=== PATIENT | male | born 1945 | race Caucasian/White ===

== ENCOUNTER 2022-09-26 14:58 | Inpatient (IN) | payer BC, SELFPAY ==
[2022-09-26 16:21] VITALS: BP 125/75; PULSE 60; RESP 18; TEMP 37; O2SAT 99; BMI 25.0
[2022-09-26 17:33] LABS: Bacteria Urine Few; RBC Urine >100 (0-2); Squamous Epithelial Cell Urine Few (None-Few); WBC Urine 50-100 (0-5)
--- NOTE | 2022-09-26 19:03 | ED.GENADULT ---
HPI - General Adult General Chief complaint: Urogenital Problems, Male Stated complaint: Low NA, potential UTI Time Seen by Provider: 09/26/22 18:54 History of Present Illness HPI narrative: This 77-year-old male comes in because his oncology team called him stating that his sodium was low. He does report some generalized weakness. He is taking Keytruda for bladder cancer. He does have some chronic hematuria related to this. He does not report any other new symptoms. Related Data Home Medications Medication Instructions Recorded Confirmed atenolol 25 mg tablet mg 09/26/22 atorvastatin 40 mg tablet mg 09/26/22 famotidine 20 mg tablet mg 09/26/22 levothyroxine 25 mcg tablet mcg 09/26/22 levothyroxine 50 mcg tablet mcg 09/26/22 Allergies Allergy/AdvReac Type Severity Reaction Status Date / Time No Known Drug Allergies Allergy Verified 09/26/22 16:18 Review of Systems Status of ROS: Reports: 10 or more systems reviewed and unremarkable except as noted in History and below Narrative: Constitutional: No fevers, no weight gain or loss. Eyes: No discharge. No vision changes. HENT: No congestion, no sore throat, no ear pain. Cardiovascular: No chest pain, no palpitations. Respiratory: No shortness of breath, no wheezes, no cough. Gastrointestinal: No abdominal pain, no vomiting, no diarrhea. Genitourinary: History of bladder cancer with recurrent hematuria. Musculoskeletal: Normal range of motion. Skin: No rashes, no pruritis. Neurological: No dizziness, weakness, sensory change, speech change. Endo/Heme/Allergies: No bruising or bleeding. No polydipsia. Pysch: no suicidality, no anxiety, no insomnia. All other systems reviewed and are negative. [facility] Medical History (Updated 09/26/22 @ 20:57 by Sai Pedraza MD) Bladder cancer Hypothyroid Social History Smoking Status: Never smoker How often do you have a drink containing alcohol: never AUDIT-C Alcohol total score: 0 Non-prescribed substance use: denies use Exam Narrative: Exam Narrative: Constitutional: Well-developed, well-nourished, no acute distress. HEENT: Normocephalic, atraumatic. Neck: Normal range of motion. Nontender. Supple. Heart: Regular. No murmurs. Normal rate. Intact distal pulses. Lungs: Clear to auscultation. No chest discomfort. No wheezes, rhonchi, or rales. Abdomen: Normal bowel sounds. Nontender. No rebound tenderness. Genitalia: Deferred. Back: No midline tenderness. Normal range of motion. Extremities: Normal range of motion. No injury. Skin: Intact. No rash. Warm. No erythema or pallor. Neurologic: No altered sensation. No weakness. Alert and oriented. Psychiatric: No suicidality. No anxiety or depression. No insomnia. Nursing notes and vitals signs are reviewed. Const: Vital Signs, click to edit/add: Vital Signs - 24 hr 09/26/22 16:21 09/26/22 20:00 Temperature 98.6 F Pulse Rate [Pulse Oximeter] 60 57 L Respiratory Rate 18 18 Blood Pressure [[facility]] 125/75 105/63 Pulse Oximetry 99 98 Oxygen Delivery Me thod Room Air Room Air Course Vital Signs Vital signs: Initial Vital Signs Temperature 98.6 F 09/26/22 16:21 Temperature Source Temporal Artery Scan 09/26/22 16:21 Pulse Rate 60 09/26/22 16:21 Respiratory Rate 18 09/26/22 16:21 Blood Pressure 125/75 09/26/22 16:21 Blood Pressure Mean 91 09/26/22 16:21 Pulse Oximetry 99 09/26/22 16:21 Oxygen Delivery Method 09/26/22 16:21 Vital Signs Temperature 98.6 F 09/26/22 16:21 Pulse Rate 60 09/26/22 16:21 Respiratory Rate 18 09/26/22 16:21 Blood Pressure 125/75 09/26/22 16:21 Pulse Oximetry 99 09/26/22 16:21 Oxygen Delivery Method 09/26/22 16:21 Temperature 98.6 F 09/26/22 16:21 Pulse Rate 57 L 09/26/22 20:00 Respiratory Rate 18 09/26/22 20:00 Blood Pressure 105/63 09/26/22 20:00 Pulse Oximetry 98 09/26/22 20:00 Oxygen Delivery Method 09/26/22 20:00 Medical Decision Making MDM Narrative Medical decision making narrative: Lab results returned with significant hyponatremia with sodium at 116. His hemoglobin is at 9.0 which is stable for him. Urinalysis does show evidence of urinary tract infection. An IV is established and he started receiving 3% hypertonic saline intravenously. He also received an IV dose of Rocephin 1000 mg. I spoke with the hospitalist on-call, Dr. Jaquez, and with the [facility] hospitalist, Dr. Darling, who will arrange for his admission. Lab Data Labs: Lab Results 09/26/22 09/26/22 09/26/22 Range/Units 16:29 19:34 19:34 WBC 7.33 (4.50-11.00) K/uL RBC 2.82 L (4.30-5.90) m/uL Hgb 9.0 L (13.5-17.5) gm/dL Hct 24.4 L (37.0-53.0) % MCV 87 (80-100) fL MCH 32 (26-34) pg MCHC 37 H (32-36) gm/dL RDW Coeff of Belinda 12.3 (11.5-15.5) % Plt Count 236 (140-440) K/uL Neut % (Auto) 67.4 (42.0-72.0) % Lymph % (Auto) 9.4 L (20-44) % [place] % (Auto) 9.7 (0.0-11.0) % Eos % (Auto) 12.4 H (0.0-7.0) % Baso % (Auto) 0.3 (0.0-3.0) % Neut # (Auto) 4.94 (1.7-7.0) K/uL Lymph # (Auto) 0.70 L (0.90-2.90) K/uL [place] # (Auto) 0.70 (0.00-0.90) K/UL Eos # (Auto) 0.90 H (0.00-0.50) K/uL Baso # (Auto) 0.02 (0.00-0.30) K/uL Abs Immat Gran (auto) 0.06 (0.00-0.30) K/uL Imm/Tot Granulo (auto) 0.8 % Sodium 116 L* (135-149) mmol/L Potassium 5.1 (3.6-5.1) mmol/L Chloride 88 L (96-114) mmol/L Carbon Dioxide 21 (20-32) mmol/L BUN 25 (7-30) mg/dL Creatinine 1.4 (0.5-1.5) mg/dL Estimated Creat Clear 44.90 Estimated GFR 51 ml/min Glucose 100 (60-115) mg/dL Calcium 8.9 (8.4-10.6) mg/dL Urine RBC >100 A (0-2) Urine WBC 50-100 A (0-5) Ur Squamous Epith Cells Few (None-Few) Urine Bacteria Few A (None) Discharge Plan Discharge Clinical Impression: Urinary tract infection, Acute hyponatremia Patient Disposition: Admitted As Inpatient Prescriptions: No Action atorvastatin 40 mg tablet atenolol 25 mg tablet levothyroxine 25 mcg tablet famotidine 20 mg tablet levothyroxine 50 mcg tablet Follow Up/Referrals: Karson Patton MD [Primary Care Provider] -
--- OUTSIDE RECORDS SUMMARY | 2022-09-26 19:48 | XMS_ITS | Encounter Summary ---
:1945 Author Care Team Providers Name Role Phone Karson Patton MD Primary Care Provider [phone] Reason for Visit Nurse visit UA/UC Assessment and Plan 1. Blood in urine Patient having blood in urine. He CIC x 2 a day. UA shows NITRATE positive. UC sent. Cipro BID for 3 days. ? urinalysis, dipstick ? culture, urine Discussion Note: None recorded.Patient educational handouts: No information available. Plan of Care Patient Instructions Follow up on UC Reminders Provider Appointments None recorded. ? ? Lab Urinalysis, Dipstick 08/17/2022 [facility] ? Culture, Urine 08/17/2022 [facility] Referral None recorded. ? ? Procedures None recorded. ? ? Surgeries None recorded. ? ? Imaging None recorded. ? ? Medications Name Start Date ? ? atenolol 25 mg tablet ? atorvastatin 40 mg tablet ? ciprofloxacin 250 mg tablet 08/19/2022 ciprofloxacin 500 mg tablet ? Take 1 tablet every 12 hours by oral route for 7 days . famotidine 20 mg tablet ? Fish Oil ? iron ? levothyroxine 75 mcg tablet ? nitroglycerin 0.4 mg sublingual tablet ? prochlorperazine maleate 10 mg tablet ? Synthroid ? Vitamin D ? Medications Administered None recorded. Vitals None recorded. Results Lab Results Date Name Specimen Result Interpretation Description Value Range Status Address ? 08/17/2022 Culture, UR ABNORMAL Final microbiology ? Fin al [place] [facility]: [address] [facility] [address], [place] 08/17/2022 Urinalysis, ? Nitrate positive ? ? [facility]: Dipstick s-Status [address], [place] ? ? ? Blood-S Large ? ? [facility] : tatus [address], [place] ? ? ? Leuko-S Large ? ? [facility] : [place] [address], [place] Allergies Code Code System Name Reaction Severity Onset NKDA ? ? ? Problems Name Status Onset Date Source ? Urethral Stricture Active 04/29/2022 ? Recurrent Urinary Tract Infection Active 04/29/2022 ? Retention of Urine Active 04/29/2022 ? Procedures Date Name Performed by ? 10/23/2019 Colonoscopy Information not avai lable Vaccine List Vaccine Type COVID-19, mRNA, LNP-S, PF, 30 mcg/0.3 mL dose ([facility] [employer]) 12/08/2020 12/29/2020 07/21/2021 pneumococcal conjugate PCV 13 10/10/2014 pneumococcal polysaccharide PPV23 10/06/2010 Social History Tobacco Smoking Status Never Smoker What was the date of your most recent tobacco screening? What is your level of alcohol consumption? Occasional What is your level of caffeine consumption? Occasional Family History Relation Problem Onset Age of Age Notes Father Family history of cardiac (No Information) N/A (No Notes) disorder Functional Status Unknown. Past Encounters Encounter Date Diagnosis Provider 08/17/2022 Blood in Urine Oneal jeff MD: [address] [place], [place] [phone], Ph. History of Present Illness None recorded. Review of Systems None recorded. Physical Exam None recorded.
--- OUTSIDE RECORDS SUMMARY | 2022-09-26 19:48 | XMS_ITS | Encounter Summary ---
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 Here for recent UTIs and weak urinary stream. 1) Metastatic MIBC - continue pembro per Dr. Chapman 2) Right hydro - resolved - remove right nephrostomy today - cipro 500 mg PO once daily x 3 days 3) UTIs - if dysuria, fever, chills, etc in futu re, would obtain new UCx and treat based on culture results 4) Urethral stricture - 14Fr stricture noted on cystoscopy 04/29 , dilated with scope - can do CIC every other day for now for a few weeks, may be able to stretch this out to once weekly 5) Incomplete bladder emptying - improved with PVR 100-150 ml - likely related to stricture 35 min total time 1. Malignant tumor of urinary bladder 2. Recurrent urinary tract infection 3. Hydronephrosis 4. Urethral stricture 5. Retention of urine Discussion Note: None recorded.Patient educational handouts: No information available. Plan of Care Reminders Provider Appointments None recorded. ? ? Lab None recorded. ? ? Referral None recorded. ? ? Procedures None [...] D ? Medications Administered None recorded. Vitals Height Weight BMI 5 ft 10 in 173 lbs 24.8 kg/m2 Results Lab Results None recorded. Allergies Code Code System Name Reaction Severity Onset NKDA ? ? ? Problems Name Status Onset Date Source ? Urethral Stricture Active 04/29/2022 ? Recurrent Urinary Tract Infection Active 04/29/2022 ? Retention of Urine Active 04/29/2022 ? Procedures Date Name Performed by ? 10/23/2019 Colonoscopy Information not avai lab Vaccine List Vaccine Type COVID-19, mRNA, LNP-S, PF, 30 mcg/0.3 mL dose ([employer]) 12/08/2020 12/29/2020 07/21/2021 pneumococcal conjugate PCV 13 [...] Unknown. Past Encounters Encounter Date Diagnosis Provider 07/06/2022 Malignant Tumor of Urinary Bladder; [facility] Everardo Harvey MD: Recurrent Urinary Tract Infection; [address] [facility], Hydronephrosis; Urethral Stricture; [place] [phone], Ph. Retention of Urine History of Present Illness Note: <div>77M with metastatic bladder cancer, metastasis to liver and lymph nodes.</div><div>
</div><div>Started with GC. Noted to have progression in liver. Now on pembrolizumab with Dr. Brown.</div><div>Lat PET CT shows mixed response (decrease in pelvic LN, increase size liver met)</div><div>
</div><div>Right hydronephrosis from pelvic LAD; right PNT placed 11/2021. Most recent exchange 06/24/22 with good antegrade flow to bladder.</div><div>
</div><div>H/o urethral stricture; has been doing CIC once daily with 14F catheter. Typically ~ 150 cc residual. 2x up to ~ 400cc. </div><div> </div><div>
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
</div><div>
</div><div>
</div><div>&lt ;strong>UCx Results </strong></div><div>03/03 no growth</div><div>03/18 >100k Pseudomonas (pansens)</div><div>04/08 >100K Pseudomonas (pansens) and >100K Enterococcus (resistant to gent and levo)</div><div>
</div><div><strong>PSA Results</strong></div><div>0.75 (09/26/06) </div><div>0.99 (09/28/11) </div><div>1.34 (10/01/13) </div><div>0.60 (04/03/17) </div><div>0.68 (03/28/18) </div><div>0.70 (02/27/19) </div><div>0.85 (05/04/20) </div><div>1.05 (07/08/21) </div><div>
</div><div><strong>Labs:</strong></div><div>10/26/21 Cr 0.93, Hgb 14.1</div><div>06/07/22: Cr 1.52</div><div>
</div><div><strong>Imagin g:</strong></div><div> 09/29/21 CT Urogram: 5.4 cm mass in bladder along Right lateral wall; no significant hydro</div><div>11/09/21 PET-CT: abnormal thickening of the rightlateral and post lateral bladder wall with uptake consistent with known primary bladder malignancy. Abnormal uptake within right common iliac and right pelvic sidewall lymph nodes is highly suspicious for metastatic otilia disease.</div><div>06/03/22: PET-CT: increase size right hepatic metastasis with decreased activity, decrease in size and actvity of right pelvic LN</div><div>
</div><div> </div><div>
</div><div>PMH: CAD, BPH, sensorineural hearing loss, HLD, esophageal stricture</div><div>PSH: b/l IHR, left and right TRAMAINE, TURP</div><div>
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</div><div>Tobacco: never smoker</div><div>EtOH: occasional</div><div>
</div><div>FHx:</div><div>brother - throat ca</div><div>

</div> Review of Systems ? Comprehensive General Adult ROS Reported By: Patient Constitutional: Constitutional: no fever, no chills Eyes: Eyes: no dry eyes, no vision change, no irritation Endocrine: Endocrine: no fatigue, no in creased thirst Cardiovascular: Cardiovascular: no chest rafia n, no palpitations Integumentary: Skin: no rashes, no change i n skin color Respiratory: Respiratory: no wheezing, no cough, no shortness of breath Gastrointestinal: Gastrointestinal: no abdomin al pain, no nausea, no vomiting, no constipation, no GERD Musculoskeletal: Musculoskeletal: no neck rafia n, no back pain Neurologic: Neurologic: no tremor, no di zziness, no numbness, no headaches Genitourinary: Genitourinary: no incontinen ce, no difficulty urinating ENMT: Ears: no ear pain. Mouth/Thr oat: no sore throat Allergic/Immunologic: Allergy/Immunologic: no itch ing, no hives Hematologic/Lymphatic: Hematologic/Lymphatic no swo llen glands, no excessive bleeding Psychiatric: Psych: no hallucinations, (n ormal) sleep disturbances: mismatch of sleep / wake ita edule with lifestyle needs Physical Exam ? Notes: <p>General: No acute distres s, well developed/well nourished</p><div>HEENT: Conjunctiva clear, extraocul ar movements intact, normocephalic/atraumatic</di v><div>Resp: Respirations unlabored, no audible wheeze, symmetric</div><div> : PCN capped</div><div>Skin: no plaques or lesions</div><div>Ext: Moves all extremities, ambulates independently</div><div>Neur o: CN intact</div><div>Psych: normal mood and affect</div><div>
</div>
--- OUTSIDE RECORDS SUMMARY | 2022-09-26 19:48 | XMS_ITS | Encounter Summary ---
:1945 Author Care Team Providers Name Role Phone Karson Patton MD Primary Care Provider [phone] Reason for Visit Recurrent urinary tract infection Assessment and Plan Assessment Note 77M with metastatic muscle invasive dianna dder cancer. Here with 2 pages of handwritten questio ns about UTIs and gross hematuria. 1) Metastatic MIBC - continue pembro per Dr. Chapman (sees Adela knapp in about 2 weeks) 2) Right hydro - resolved - did not have f/u imaging after NUT rem kishan on 07/06, but had PET last week through Dr. Chapman 3) UTIs - if dysuria, fever, chills, etc in futu re, would obtain new UCx and treat based on culture results - would not treat based on color or odor of urine unless UCx positive (though he may be considered colonized at some point and would then only treat if symptomatic with fever, etc) - recommend UCx and appropriate abx at t lisa of PCN changes as discussed above - if dysuria, fever, chills, etc in futu re, would obtain new UCx and treat based on culture results - extend his cipro for 1 week (500 mg B ID) 4) Urethral stricture - 14 Fr stricture noted on cystoscopy 04/29/22 , dilated with scope - continue CIC at this time 5) Incomplete bladder emptying - likely related to stricture - continue CIC 6) Gross hematuria - we reviewed that this is common with b ladder cancer as well as UTIs and that it may continue to be an issue in setting of known bladder cancer and may be exacerbated during an acute UTI - discussed we could teach him hand irri gation since he already knows how to do CIC, but he prefers to defer this for now - advised that if he has clots and is un able to void, may need 3-way kuo and CBI Of note, a total of 65 minutes was spent : preparing to see the patient by reviewing records, images, and laboratory data; obtaining/reviewing separately obtained history; performing physical examination , counseling and educating patient; orde ring appropriate medications; documenting the clinical encounter; and coordination of care. Visit start time 10:54 Visit end time 11:48 1. Malignant tumor of urinary bladder 2. Recurrent urinary tract infection ? urinalysis, dipstick ? Cipro 500 mg tablet 3. Hydronephrosis 4. Urethral stricture 5. Retention of urine Discussion Note: None recorded.Patient educational handouts: No information available. Plan of Care Reminders Provider Appointments None recorded. ? ? Lab Urinalysis, Dipstick 08/19/2022 [facility] Referral None recorded. ? ? Procedures None [...] 173 lbs 24.8 kg/m2 Results Lab Results Date Name Specimen Result Interpretation Description Value Range Status Address ? 08/19/2022 Urinalysis, ? pH-Status 6.0 ? ? [facility]: [address], [place] ? ? ? Nitrates-Statu positive ? ? [facility]: [address], [place] ? ? ? Blood-Status Large ? ? [facility]: [address], [place] ? ? ? Leuko-Status Large ? ? [facility]: [address], [place] Allergies Code Code System [...] mRNA, LNP-S, PF, 30 mcg/0.3 mL dose ([employer]) 12/08/2020 12/29/2020 07/21/2021 pneumococcal conjugate PCV 13 [...] Unknown. Past Encounters Encounter Date Diagnosis Provider 08/19/2022 Malignant Tumor of Urinary Bladder; Toi Blackwood PA-C: [address] Recurrent Urinary Tract Infection; [address]. [place] Hydronephrosis; Urethral Stricture; [phone], Ph. Retention of Urine 08/17/2022 Blood in Urine Oneal jeff MD: [address] [place] [address], Ph. [phone] History of Present Illness Note: <div>77M with metastatic bladder cancer, metastasis to liver and lymph nodes.</div><div>
</div><div>Started with GC. Noted to have progression in liver. Now on pembrolizumab with Dr. Brown.</div><div>Saw Dr. Chapman 08/12/22 with most recent PET CTcontinuing to show mixed response (though now with decrease in liver met, increase number and size of pelvic LNs)</div><div>
</div><div>Right hydronephrosis from pelvicLAD; right PNT placed 11/2021. Most recent exchange 06/24/22 with good antegrade flow to bladder. RightPNT removed 07/06.</div><div>
</div><div>H/o urethral stricture; hasbeen doing CIC once daily with 14F catheter. Typically ~ 150 cc residual. 2x up to ~ 400cc. 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
</div><div>
</div><div><strong>08/19/22: </strong>Here today for gross hematuriaand UTIs with 2 pages of handwritten questions this morning. Notes he had shaking chills at home 2 days ago and believes he collapsed in the shower. His spouse had to help him get up and out of the shower. Also reports he was having hematuria with clots. Attempted to straight cath himself, but catheter plugged immediately. Attempted a second cath and drained 525 cc of bloody urine with clots.</div><div>
</div><div>Was seen on nursing schedule later that same day. UA was concerning for infection. Received cipro 500 mg BID x3 days while culture was pending. UCx returned this morning with >100K Klebsiella oxytoca (resistant to ampicillin, ceftriaxone and intermediate to amp/sulbactam, pip/tazo).</div><div>
</div><div>He is feeling much improved with initiation of antibiotics. No further fever or chills. States the hematuria isintermittent and rather unpredictable. Urine will be clear for days, then will have hematuria. Had been performing CIC twice daily but now doing CIC daily to every other day. </div><div>
</div><div>Hgb 9.[address] Chapman</div><div>
</div><div>PVR today 241 cc</div><div>
</div><div><strong>UCx Results </strong></div><div>03/03/22 no growth</div><div>03/18/22 >100k Pseudomonas (pansens)</div><div>04/08/22 >100K Pseudomonas (pansens) and >100K Enterococcus (resistant to gent and levo)</div><div>07/19/22 >100,000 CFU/mL Klebsiella oxytoca (resistant to ampicillin and cefazolin), 10,000-50,000 CFU/mL Pseudomonas aeruginosa, 50,000- 100,000 CFU/mL Enterococcus faecalis </div><div>08/17/22 UCx >100KKlebsiella oxytoca (resistant to ampicillin, ceftriaxone and intermediate to amp/sulbactam, pip/tazo)</div><div>
</div><div>
</div><div><strong>PSA Results</strong></div><div>0.75 (09/26/06) </div><div>0.99 (09/28/11) </div><div>1.34 (10/01/13) </div><div>0.60 (04/03/17) </div><div>0.68 (03/28/18) </div><div>0.70 (02/27/19) </div><div>0.85 (05/04/20) </div><div>1.05 (07/08/21) </div><div>
</div><div><strong>Labs:</strong></div><div>10/26/21 Cr 0.93, Hgb 14.1</div><div>06/07/22: Cr 1. 52</div><div>
</div><div><strong>Imaging:</strong></div><div> 09/29/21 CT Urogram: 5.4 cm mass in bladder along Right lateral wall; no significant hydro</div><div>11/09/21 PET-CT: abnormal thickening of the right lateral and post lateral bladder wall with uptake consistent with known primary bladder malignancy. Abnormal uptake within right common iliac and right pelvic sidewall lymph nodes is highly suspicious for metastatic otilia dis ease.</div><div>06/03/22: PET-CT: increase size right hepatic metastasis with decreased activity, decrease in size and activity of right pelvic LN</div><div>
</div><div>
</div><div>PMH: CAD, BPH, sensorineural hearing loss, HLD, esophageal stricture</div><div>PSH: b/l IHR, left and right TRAMAINE, TURP</div><div>
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</div><div>Tobacco: never smoker</div><div>EtOH: occasional</div><div>< br></div><div>FHx:</div><div>brother - throat ca</div><div>&lt ;br></div><div>
</div><div>
</div> Review of Systems ? Comprehensive General [...] v><div>Resp: Respirations unlabored, no audible wheeze, symmetric</div><div> Skin: no plaques or lesions</div><div>Ext: Moves all extremities, ambulates i ndependently</div><div>Neuro: CN grossly intact</div><div>Psych: norm al mood and affect</div><div>
</div>
--- OUTSIDE RECORDS SUMMARY | 2022-09-26 19:48 | XMS_ITS ---
:1945 Author Care Team Providers Name Role Phone DISHA QUEVEDO MD Primary Care Provider [phone] Allergies Code Code System Name Reaction Severity Status Onset NKDA ? Medications Name Status Start Date Stop Date ? ? amoxicillin 875 mg tablet Completed ? 2021 atenolol 25 mg tablet Active ? Not availa ble atorvastatin 40 mg tablet Active ? Not av ailable cefuroxime axetil 500 mg tablet Completed ? 11/15/2021 ciprofloxacin 250 mg tablet Active 08/19/2022 Not available ciprofloxacin 500 mg tablet Active ? Not available famotidine 20 mg tablet Active ? Not avai lable Fish Oil Active ? Not available fosfomycin tromethamine 3 gram oral packet Completed ? 07/06/2022 iron Active ? Not available levothyroxine 25 mcg tablet Completed ? 07/24 levothyroxine 50 mcg tablet Completed ? 07/24 levothyroxine 75 mcg tablet Active ? Not available nitroglycerin 0.4 mg sublingual tablet Active ? Not available omeprazole 20 mg capsule,delayed release Completed ? 08/19/2022 ondansetron HCl 8 mg tablet Completed ? 07/24 oxycodone-acetaminophen 5 mg-325 mg tablet Completed ? 11/15/2021 prochlorperazine maleate 10 mg tablet Active ? Not available Synthroid Active ? Not available vancomycin 125 mg capsule Completed ? 2021 TAKE ONE CAPSULE FOUR TIMES DAILY FOR 10 DAYS Vitamin D Active ? Not available Problems Name Status Onset Date Source ? Urethral Stricture Active 04/29/2022 ? Recurrent Urinary Tract Infection Active 04/29/2022 ? Retention of Urine Active 04/29/2022 ? Procedures Date Name Performed by ? 10/23/2019 Colonoscopy Information not avai lable Results Lab Results Date Name Specimen Result Interpretation Description Value Range Status Address ? 08/19/2022 Urinalysis, ? pH-Status 6.0 ? ? [facility] [place] [address], [place] ? ? ? Nitrates-St positive ? ? [facility]: atus [address], [place] ? ? ? Blood-Statu Large ? ? [facility] s [address], [place] ? ? ? Leuko-Statu Large ? ? [facility] s [address], [place] 08/19/2022 Urinalysis, ? No ? ? ? Dipstick observation recorded. 08/17/2022 Culture, UR ABNORMAL Final microbiology ? Fin al [place] Urine Report results [facility]: [address] [facility] [address], [place] 08/17/2022 Urinalysis, ? Nitrates-St positive ? ? [facility]: Dipstick atus [address], [place] ? ? ? Blood-Statu Large ? ? [facility] s [address], [place] ? ? ? Leuko-Statu Large ? ? [facility] s [address], [place] 08/17/2022 Urinalysis, ? No ? ? ? Dipstick observation recorded. 04/29/2022 Culture, UR ? Final microbiology ? Final [place] Urine Report results [facility]: [address] [facility] [address], [place] 04/29/2022 Urinalysis, ? Color-Statu Yellow ? ? Dipstick s ? ? ? Clarity-Sta Cloudy ? ? tus ? ? ? Glucose-Sta Negative ? ? tus ? ? ? Bilirubin-S Negative ? ? tatus ? ? ? Ketones-Sta Negative ? ? tus ? ? ? Sp 1.010 ? ? Hooper-Stat us ? ? ? pH-Status 6.0 ? Protein-Sta >=9.0 ? ? tus ? ? ? Urobilinoge 0.2 ? ? n-Status ? ? ? Nitrates-St negative ? ? atus ? ? ? Blood-Statu Moderate ? ? s ? ? ? Leuko-Statu Large ? ? s ? ? ? Specimen Voided ? ? Type ? ? ? Performed Janee Olivas ? ? by RN ? ? ? Total Urine 20cc ? ? Volume 04/29/2022 Urinalysis, ? No ? ? ? Dipstick observation recorded. 04/29/2022 Urinalysis, ? No ? ? ? Dipstick observation recorded. Past Encounters Encounter Date Diagnosis Provider 08/19/2022 Malignant Tumor of Urinary Bladder; Toi Blackwood PA-C: [address] Recurrent Urinary Tract Infection; [address] [place] Hydronephrosis; Urethral Stricture; [phone], Ph. Retention of Urine 08/17/2022 Blood in Urine Oneal jeff MD: [address] [place] [address], Ph. [phone] 07/06/2022 Malignant Tumor of Urinary Bladder; Jeremy jasmine Harvey MD: Recurrent Urinary Tract Infection; [address] [facility]dr[facility]rosis; Urethral Stricture; [place] [phone], Ph. Retention of Urine 04/29/2022 Malignant Tumor of Urinary Bladder; Toi Blackwood PA-C: [address] Recurrent Urinary Tract Infection; [address], [place], [place] Hydronephrosis; Urethral Stricture; [phone], Ph. Retention of Urine 11/12/2021 Malignant Tumor of Urinary Bladder Leigh Harvey MD: [address] [place] [address], Ph. Social History Tobacco Smoking Status Never Smoker Vaccine List Vaccine Type COVID-19, mRNA, LNP-S, PF, 30 mcg/0.3 mL dose (Helixbind) 12/08/2020 12/29/2020 07/21/2021 pneumococcal conjugate PCV 13 10/10/2014 pneumococcal polysaccharide PPV23 10/06/2010 Plan of Care Patient Instructions Follow up on Reminders Provider Appointments None recorded. ? ? Lab None recorded. ? ? Referral None recorded. ? ? Procedures None recorded. ? ? Surgeries None recorded. ? ? Imaging None recorded. ? ? Vitals 08/19/2022 10:40AM ESTABLISHED 20 Height Weight BMI 5 ft 10 in 173 lbs 24.8 kg/m2 07/06/2022 04:00PM CONSULT Height Weight BMI 5 ft 10 in 173 lbs 24.8 kg/m2 04/29/2022 09:20AM ESTABLISHED 20 Height Weight BMI 5 ft 10 in 173 lbs 24.8 kg/m2 11/12/2021 11:30AM NEW PATIENT 30 Height Weight BMI 5 ft 10 in 173 lbs 24.8 kg/m2
[2022-09-26 19:56] LABS: Basophils Absolute Auto 0.02 K/uL (0.00-0.30); Basophils Percent Auto 0.3 % (0.0-3.0); Chloride* 88 mmol/L (96-114); Eosinophils Percent Auto 12.4 % (0.0-7.0); Hematocrit 24.4 % (37.0-53.0); Immature Granulocytes Abs Auto 0.06 K/uL (0.00-0.30); Immature Granulocytes Pct Auto 0.8 %; Lymphocytes Percent Auto 9.4 % (20-44); Mean Corpuscular HGB Conc 37 gm/dL (32-36); Mean Corpuscular Hemoglobin 32 pg (26-34); Mean Corpuscular Volume 87 fL (80-100); Monocytes Percent Auto 9.7 % (0.0-11.0); Neutrophils Absolute Auto 4.94 K/uL (1.7-7.0); Neutrophils Percent Auto 67.4 % (42.0-72.0); Platelet Count* 236 K/uL (140-440); Potassium* 5.1 mmol/L (3.6-5.1); RDW Coefficient of Variation % 12.3 % (11.5-15.5); Red Blood Count 2.82 m/uL (4.30-5.90); White Blood Count* 7.33 K/uL (4.50-11.00)
[2022-09-26 19:59] LABS: Blood Urea Nitrogen* 25 mg/dL (7-30); Carbon Dioxide* 21 mmol/L (20-32); Creatinine* 1.4 mg/dL (0.5-1.5); Estimated Glomerular Filt Rate 51 ml/min; Glucose* 100 mg/dL (60-115)
[2022-09-26 20:00] VITALS: BP 105/63; PULSE 57; RESP 18; O2SAT 98
[2022-09-26 20:00] LABS: Calcium* 8.9 mg/dL (8.4-10.6)
[2022-09-26 20:03] LABS: Slide Review Reflex No
[2022-09-26 20:05] LABS: Sodium* 116 mmol/L (135-149)
--- NOTE | 2022-09-26 20:05 | ED.NURSE ---
Critical result from lab: sodium 116. RN and updated.
[2022-09-26] MEDS: 0.9 % SODIUM CHLORIDE 1000 ml 1,000 ML IV (20:20)
[2022-09-26] MEDS: cefTRIAXone 1 GM in 0.9 % SODIUM CHLORIDE Mini-bag 100 ML IVPB (20:20)
[2022-09-26 20:39] VITALS: BP 105/63; PULSE 58; O2SAT 98
[2022-09-26 21:02] VITALS: BP 101/62; PULSE 56; O2SAT 98
[2022-09-26 21:03] LABS: SARS Antigen* Negative (Negative)
[2022-09-26 21:15] VITALS: PULSE 58; O2SAT 99
--- NOTE | 2022-09-26 21:23 | ED.NURSE ---
report to colin NAVARRETE on med surg, pt transferred via wc to room 260.
--- NOTE | 2022-09-26 21:59 | P.IMCN_ITS ---
Date of Consult Consult date: 09/27/22 Primary Care Provider: Karson Patton MD Consult Narrative [facility] eHospitalist was contacted by Dr. Mckee with request of admission support. Chief complaint: Hyponatremia HPI: The patient had routine lab work done on Monday at his oncologist office and was contacted today because he had a low sodium level. In the ED his sodium level was 116. His reports that he has been slow to respond with delayed speech over the past weekend. She recalls that his sodium level has been trending down gradually but never this low. She recalls sodium levels in the 130 range. He takes keytruda for his bladder cancer which also seems to have an effect on other electrolytes as the patient reports that his magnesium is generally lower than usual. When questioned he does complain of lower extremity edema occurring over the past few days. He was also found to have a urinary tract infection with work-up. Review of systems other than mentioned above is negative. Home Medications/Pertinent Medical History/Pertinent Social History: Reviewed see EMR for details [facility] Medical History (Updated 09/26/22 @ 20:57 by Sai Pedraza MD) Bladder cancer Hypothyroid Social History Smoking Status: Never smoker How often do you have a drink containing alcohol: never AUDIT-C Alcohol total score: 0 Non-prescribed substance use: denies use Caffeine: Yes Meds Home Medications and Allergies Home Medications Medication Instructions Recorded Confirmed Type atenolol 25 mg tablet mg 09/26/22 History atorvastatin 40 mg tablet mg 09/26/22 History famotidine 20 mg tablet mg 09/26/22 History levothyroxine 25 mcg tablet mcg 09/26/22 History levothyroxine 50 mcg tablet mcg 09/26/22 History Allergies Allergy/AdvReac Type Severity Reaction Status Date / Time No Known Drug Allergies Allergy Verified 09/26/22 16:18 Exam Narrative: Exam Narrative: Exam (performed via interactive video with assistance of bedside nurse): General: Alert, cooperative, no acute distress HEENT: Oral mucosa pink and moist without erythema Lungs: Clear to auscultation bilaterally without crackle or wheeze CV: Regular rate and rhythm without loud murmur rub or gallop Ext: 1+ pedal edema bilaterally Skin: No rashes, bruises or lesions appreciated on gross visualization of exposed skin Neuro: Alert, oriented x 3. CN III -VII, XI, XII grossly intact, moves all extremities without any significant focal deficit appreciated Const: Vital Signs, click to edit/add: Vital Signs - 24 hr 09/26/22 16:21 09/26/22 20:00 09/26/22 20:39 Temperature 98.6 F Pulse Rate 58 L Pulse Rate [Pulse Oximeter] 60 57 L Respiratory Rate 18 18 Blood Pressure 105/63 Blood Pressure [Ri ght Upper Arm] 125/75 105/63 Pulse Oximetry 99 98 98 Oxygen Delivery Me thod Room Air Room Air 09/26/22 21:02 09/26/22 21:15 Temperature Pulse Rate 56 L 58 L Pulse Rate [Pulse Oximeter] Respiratory Rate Blood Pressure 101/62 Blood Pressure [Ri ght Upper Arm] Pulse Oximetry 98 99 Oxygen Delivery Me thod Labs Labs: Short CBC 09/26/22 Range/Units 19:34 WBC 7.33 (4.50-11.00) K/uL Hgb 9.0 L (13.5-17.5) gm/dL Hct 24.4 L (37.0-53.0) % Plt Count 236 (140-440) K/uL BMP 09/26/22 19:34 Sodium 116 L* Potassium 5.1 Chloride 88 L Carbon Dioxide 21 BUN 25 Creatinine 1.4 Glucose 100 Calcium 8.9 Assessment and Plan Assessment and plan (1) Acute hyponatremia: Status: Acute (2) Urinary tract infection: Status: Acute Plan Recent lab: Reviewed see EMR for details Assessment and Plan: 1. Hyponatremia-May be related to patient's medication keytruda. However given his degree of hyponatremia which is severe and his mental status changes, continue with 3% saline solution. BMP every 4 hours 2. UTI-continue Rocephin 3. Bladder cancer with chronic hematuria-monitor 4. Hypertension-stable. BP low normal. Monitor for now before beginning atenolol 5. Dyslipidemia-stable on Lipitor 6. GERD-stable continue famotidine 7. Hypothyroidism-continue Synthroid 8. Anemia - likely chronic. Monitor 9. DVT prophylaxis-SCDs 10. CODE STATUS full code discussed with patient Chart review was performed as well as evaluation of the patient via video. Thank you for involving ehospitalist. Please contact [phone] if further assistance is needed.
[2022-09-26 22:06] VITALS: BP 121/63; RESP 18; TEMP 37; O2SAT 99; BMI 24.2
[2022-09-26 23:02] LABS: Chloride* 91 mmol/L (96-114); Potassium* 4.6 mmol/L (3.6-5.1)
[2022-09-26 23:05] LABS: Blood Urea Nitrogen* 24 mg/dL (7-30); Carbon Dioxide* 21 mmol/L (20-32); Creatinine* 1.3 mg/dL (0.5-1.5); Est. Creatinine Clearance* 48.35; Estimated Glomerular Filt Rate 56 ml/min
[2022-09-26 23:06] LABS: Calcium* 8.1 mg/dL (8.4-10.6); Glucose* 87 mg/dL (60-115)
[2022-09-26 23:09] LABS: Sodium* 118 mmol/L (135-149)
[2022-09-27 02:36] VITALS: BP 105/66; RESP 18; TEMP 36.8; O2SAT 98
[2022-09-27 02:45] LABS: Chloride* 93 mmol/L (96-114)
[2022-09-27 02:46] LABS: Potassium* 4.5 mmol/L (3.6-5.1)
[2022-09-27 02:48] LABS: Creatinine* 1.3 mg/dL (0.5-1.5); Est. Creatinine Clearance* 48.35; Estimated Glomerular Filt Rate 56 ml/min
[2022-09-27 02:49] LABS: Blood Urea Nitrogen* 23 mg/dL (7-30); Calcium* 8.2 mg/dL (8.4-10.6); Carbon Dioxide* 21 mmol/L (20-32); Glucose* 90 mg/dL (60-115)
[2022-09-27 02:50] LABS: Sodium* 119 mmol/L (135-149)
--- NOTE | 2022-09-27 03:54 | PC.NURSE ---
Admission to 0700: Pt sodium increased from 116,118, to 119, thus decreased IVF rate of 3%NS to 15ml/hr, iv site secured and intact. /pt main complaints are weakness and slower to respond; A&O, Assist x1 to BR, alarm on. Has been resting well in between cares, no new s&s, repeat Labs at 0630.
[2022-09-27 07:00] VITALS: BP 101/62; RESP 18; TEMP 36.6; O2SAT 99
[2022-09-27] MEDS: LEVOTHYROXINE 50 MCG TABLET PO (08:10)
[2022-09-27] MEDS: LEVOTHYROXINE 25 MCG TABLET PO (08:10)
[2022-09-27 08:39] LABS: Basophils Absolute Auto 0.04 K/uL (0.00-0.30); Basophils Percent Auto 0.6 % (0.0-3.0); Eosinophils Percent Auto 12.5 % (0.0-7.0); Hematocrit 23.1 % (37.0-53.0); Hemoglobin* 8.6 gm/dL (13.5-17.5); Immature Granulocytes Abs Auto 0.06 K/uL (0.00-0.30); Immature Granulocytes Pct Auto 0.9 %; Lymphocytes Percent Auto 10.5 % (20-44); Mean Corpuscular HGB Conc 37 gm/dL (32-36); Mean Corpuscular Hemoglobin 32 pg (26-34); Mean Corpuscular Volume 86 fL (80-100); Monocytes Percent Auto 11.3 % (0.0-11.0); Neutrophils Absolute Auto 4.15 K/uL (1.7-7.0); Neutrophils Percent Auto 64.2 % (42.0-72.0); Platelet Count* 216 K/uL (140-440); RDW Coefficient of Variation % 12.1 % (11.5-15.5); Red Blood Count 2.69 m/uL (4.30-5.90); White Blood Count* 6.47 K/uL (4.50-11.00)
[2022-09-27 08:50] LABS: Slide Review Reflex No
[2022-09-27 08:55] LABS: Chloride* 95 mmol/L (96-114)
[2022-09-27 08:56] LABS: Potassium* 4.5 mmol/L (3.6-5.1)
[2022-09-27 08:58] LABS: Carbon Dioxide* 21 mmol/L (20-32); Creatinine* 1.2 mg/dL (0.5-1.5); Est. Creatinine Clearance* 52.38; Estimated Glomerular Filt Rate 62 ml/min
[2022-09-27 08:59] LABS: Blood Urea Nitrogen* 20 mg/dL (7-30); Calcium* 8.5 mg/dL (8.4-10.6); Glucose* 85 mg/dL (60-115); Magnesium* 1.6 mg/dL (1.5-2.6)
[2022-09-27 09:07] LABS: Sodium* 121 mmol/L (135-149)
[2022-09-27] MEDS: ATORVASTATIN CALCIUM 40 MG TABLET PO (09:39)
[2022-09-27] MEDS: FAMOTIDINE 20 MG TABLET PO (09:39)
[2022-09-27 11:00] VITALS: BP 101/61; RESP 18; TEMP 36.5; O2SAT 98
--- NOTE | 2022-09-27 11:25 | P.IMHP_ITS ---
Hospitalist- H&P: HPI History of Present Illness Date Seen: 09/27/22 Chief complaint: Low NA, potential UTI Narrative: Martín Giraldo is a 77 year old male with metastatic bladder cancer admitted through the emergency department with low sodium, poor balance and mental fogginess. Patient's notes that over this past weekend he seemed to have some mental cloudiness or fogginess. He had slow mentation and some confusion. He seemed more forgetful. He seemed to be more unbalanced when he was walking as well. He had laboratory studies done at his oncology clinic last week and they showed a low sodium. He is referred to the emergency room for evaluation. There he was found to have a sodium of 116. He is admitted overnight on hypertonic saline and his sodium has come up to 121 this morning. He feels like his mental fogginess is better, He does have chronic mild hyponatremia with sodiums around 130 for the last year or so. This is thought to be a side effect of his chemo and immune therapies. He reports he has generally been otherwise feeling well he has been eating and drinking normally. He has been able to take his medications. He is currently on Keytruda for immune therapy. Review of Systems Narrative: He reports he has generally been doing well recently. No other symptoms of illness including fever, shortness of breath, cough, abdominal pain. He had a percutaneous urostomy tube that was removed in May. Not had any urinary tract infection symptoms in the past week. He has had problems in the past with recurrent urinary tract infections. He does continue to have some blood in his urine presumably related to his bladder cancer. He reports that he is feeling a relatively rapid progression of weakness and fatigue over the last several months. [facility] Medical History (Updated 09/27/22 @ 11:44 by Indio Flaherty MD) Bladder cancer Hypothyroid Ureteral obstruction Surgical History (Updated 09/27/22 @ 11:39 by Indio Flaherty MD) H/O inguinal hernia repair H/O lumbar discectomy H/O transurethral resection of bladder tumor (TURBT) History of arthroplasty of right hip History of arthroscopy of shoulder History of colonoscopy History of esophagogastroduodenoscopy (EGD) History of lumbar fusion History of mandibular surgery History of tonsillectomy S/P TURP Family History (Updated 09/27/22 @ 11:39 by Inido Flaherty MD) Father Coronary artery disease Social History (Updated 09/27/22 @ 11:40 by Indio Flaherty MD) Narrative: He is and lives with his . 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 He has never smoked. He formally had 1 glass of wine per day but has not been drinking since cancer diagnosis. 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 Code status is full Smoking Status: Never smoker How often do you have a drink containing alcohol: never AUDIT-C Alcohol total score: 0 Non-prescribed substance use: denies use Caffeine: Yes Meds Home Medications and Allergies Home Medications Medication Instructions Recorded Confirmed Type atenolol 25 mg tablet 25 mg PO DAILY 09/26/22 09/27/22 History atorvastatin 40 mg tablet 40 mg PO DAILY 09/26/22 09/27/22 History famotidine 20 mg tablet 20 mg PO BID 09/26/22 09/27/22 History levothyroxine 25 mcg tablet 25 mcg PO DAILY 09/26/22 09/27/22 History levothyroxine 50 mcg tablet 50 mcg PO DAILY 09/26/22 09/27/22 History Allergies Allergy/AdvReac Type Severity Reaction Status Date / Time No Known Drug Allergies Allergy Verified 09/26/22 16:18 Exam Narrative: Exam Narrative: He is alert and appears in no distress. He gives his own history. Head is normal. Eyes normal. Sclerae nonicteric. Oropharynx with small airway. Neck is supple without mass or adenopathy. Respirations are clear to auscultation. Cardiovascular: S1, S2, regular rate and rhythm. No murmur gallop or rub. Abdomen: Bowel sounds active. Abdomen is soft without tenderness or mass. External genitalia normal. Extremities with good peripheral pulses. Trace edema in his feet. Good capillary refill. Const: Vital Signs, click to edit/add: Vital Signs - 24 hr 09/26/22 16:21 09/26/22 20:00 09/26/22 20:39 Temperature 98.6 F Pulse Rate 58 L Pulse Rate [Pulse Oximeter] 60 57 L Respiratory Rate 18 18 Blood Pressure 105/63 Blood Pressure [Le ft Arm] Blood Pressure [Ri ght Upper Arm] 125/75 105/63 Pulse Oximetry 99 98 98 Oxygen Delivery Me thod Room Air Room Air 09/26/22 21:02 09/26/22 21:15 09/26/22 22:06 Temperature 98.6 F Pulse Rate 56 L 58 L Pulse Rate [Pulse Oximeter] Respiratory Rate 18 Blood Pressure 101/62 Blood Pressure [Le ft Arm] 121/63 Blood Pressure [Ri ght Upper Arm] Pulse Oximetry 98 99 99 Oxygen Delivery Me thod Room Air 09/27/22 02:36 09/27/22 07:00 09/27/22 07:00 Temperature 98.3 F 97.9 F Pulse Rate Pulse Rate [Pulse Oximeter] Respiratory Rate 18 18 18 Blood Pressure Blood Pressure [Le ft Arm] 105/66 101/62 Blood Pressure [Ri ght Upper Arm] Pulse Oximetry 98 99 Oxygen Delivery Me thod Room Air Room Air Documenting provider has reviewed patient's vital signs: yes Hospitalist - H&P: Result Labs Labs: Short CBC 09/26/22 09/27/22 Range/Units 19:34 07:48 WBC 7.33 6.47 (4.50-11.00) K/uL Hgb 9.0 L 8.6 L (13.5-17.5) gm/dL Hct 24.4 L 23.1 L (37.0-53.0) % Plt Count 236 216 (140-440) K/uL BMP 09/26/22 09/26/22 09/27/22 19:34 22:45 02:30 Sodium 116 L* 118 L* 119 L* Potassium 5.1 4.6 4.5 Chloride 88 L 91 L 93 L Carbon Dioxide 21 21 21 BUN 25 24 23 Creatinine 1.4 1.3 1.3 Glucose 100 87 90 Calcium 8.9 8.1 L 8.2 L 09/27/22 07:48 Sodium 121 L* Potassium 4.5 Chloride 95 L Carbon Dioxide 21 BUN 20 Creatinine 1.2 Glucose 85 Calcium 8.5 Assessment and Plan Assessment and plan (1) Acute hyponatremia: Problem comment: Acute on chronic. Presumably due to immunotherapy for bladder cancer. Continue close monitoring of serum sodium. Continue 3% saline for now. Slow and safe correction of sodium. Probable discharge to home in 1-2 days if able to correct sodium and maintain it Status: Acute (2) Urinary tract infection: Problem comment: Treatment with ceftriaxone at this point. Unclear how symptomatic he is from this. Status: Acute (3) Fatigue: Problem comment: Acute on chronic. Discussed need for continued activity even though it causes him fatigue Status: Acute (4) Weakness: Problem comment: Outpatient physical therapy is recommended. Continue to be physically active is important. Status: Acute (5) Mental confusion: Problem comment: Mostly due to hyponatremia. Reassess if not clearing with correction of sodium Status: Acute Plan Continue in hospital for correction of serum sodium and treatment of urinary tract infection. Anticipate discharge to home with his when improved. Total time spent today is 70 minutes, 40 minutes in coordination of care and discussing with patient and ongoing evaluation management of hyponatremia and bladder cancer
--- NOTE | 2022-09-27 14:31 | NUTR.NU ---
RD with Nutrition Screen and visit related to active Ca with mets. 77 yo male admitted with hyponatremia related to tx for cancer diagnosis. Pt reports no weight loss since start of treatment, no change in tastes or appetite. Current diet is 2 gm Na with 1500 ml fluid restriction. Pt states that at home he does not follow a special diet and uses salt in his cooking. Current intake here reported as 100% of meals. No supplements or scheduled snacks desired. Will continue to monitor and f/u PRN as needed.
--- NOTE | 2022-09-27 14:39 | PC.NURSE ---
FLAT AFFECT. NEGATIVE COMMENTS. COOPERATIVE WITH ASSESSMENT. NA UP TO 121 TODAY. CONTINUE 1500CC FLUID RESTRICTION. WEAKNESS WITH AMBULATION. SM BM TODAY. 3%NS RUNNING AT 15CC/HR TO RIGHT FA. 2-3+ PITTING EDEMA BILATERALLY. AMBULATED IN [place] WITH PT TODAY AND TOLERATED WELL.
[2022-09-27 15:42] LABS: Sodium* 121 mmol/L (135-149)
[2022-09-27 16:10] VITALS: BP 99/64; RESP 18; TEMP 36.6; O2SAT 98
[2022-09-27 19:19] VITALS: BP 109/65; PULSE 67; RESP 16; TEMP 36.8; O2SAT 97
[2022-09-27] MEDS: cefTRIAXone 2 GM in 0.9 % SODIUM CHLORIDE Mini-bag 100 ML IVPB (20:06)
[2022-09-27 21:09] LABS: Sodium* 123 mmol/L (135-149)
[2022-09-27 23:00] VITALS: BP 106/62; PULSE 65; RESP 16; TEMP 36.8; O2SAT 97
[2022-09-28 03:00] VITALS: BP 108/55; PULSE 59; RESP 16; TEMP 36.4; O2SAT 96
--- NOTE | 2022-09-28 06:31 | PC.NURSE ---
23-07: pleasant and cooperative. Responses delayed. Soft BPs, asymptomatic. pt states that is his baseline.? ?
[2022-09-28] MEDS: LEVOTHYROXINE 50 MCG TABLET PO (06:36)
[2022-09-28] MEDS: LEVOTHYROXINE 25 MCG TABLET PO (06:36)
[2022-09-28 07:50] VITALS: BP 112/63; PULSE 64; RESP 16; TEMP 36.8; O2SAT 97
[2022-09-28 07:57] LABS: Chloride* 98 mmol/L (96-114); Potassium* 4.2 mmol/L (3.6-5.1); Sodium* 126 mmol/L (135-149)
[2022-09-28 08:00] LABS: Blood Urea Nitrogen* 20 mg/dL (7-30); Carbon Dioxide* 20 mmol/L (20-32); Creatinine* 1.3 mg/dL (0.5-1.5); Est. Creatinine Clearance* 48.35; Estimated Glomerular Filt Rate 56 ml/min
[2022-09-28 08:01] LABS: Calcium* 8.7 mg/dL (8.4-10.6); Glucose* 88 mg/dL (60-115)
[2022-09-28] MEDS: FAMOTIDINE 20 MG TABLET PO ×2 (09:46→21:03)
[2022-09-28] MEDS: ATORVASTATIN CALCIUM 40 MG TABLET PO (09:47)
[2022-09-28 11:00] VITALS: BP 117/68; PULSE 68; RESP 18; TEMP 36.6; O2SAT 100
--- NOTE | 2022-09-28 15:26 | PC.NURSE ---
Pt's MOCA . Updated Dorota on plan of care for today. Pt is impulsive when he needs to use the restroom. Bed and chair alarms engaged per fall prevention protocol. Reading paper throughout the day and watching TV. Plan possible d/c to his own home with when sodium level stabilizes. No inappropriate behaviors or dysphagia with meds. 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 Report to Janee NAVARRETE for evening shift.
[2022-09-28 16:11] VITALS: BP 118/72; PULSE 66; RESP 16; TEMP 36.9; O2SAT 99
[2022-09-28 16:19] LABS: Sodium* 126 mmol/L (135-149)
--- NOTE | 2022-09-28 16:43 | PM.IMPN1 ---
Progress Note: A&P Assessment and plan (1) Acute hyponatremia: Problem details: Acute on chronic. Presumably due to immunotherapy for bladder cancer. Continue close monitoring of serum sodium. Continue 3% saline for now. Slow and safe correction of sodium. Probable discharge to home in 1-2 days if able to correct sodium and maintain it Status: Acute (2) Urinary tract infection: Problem details: Klebsiella sensitive to cephalosporins. Switch to cephalexin Status: Acute (3) Fatigue: Problem details: Acute on chronic. Discussed need for continued activity even though it causes him fatigue Status: Acute (4) Weakness: Problem details: Outpatient physical therapy is recommended. Continue to be physically active is important. Status: Acute (5) Mental confusion: Problem details: Mostly due to hyponatremia. Reassess if not clearing with correction of sodium Status: Acute Plan Continue in hospital for 1 more day to see if he can maintain his sodium off of 3% hypertonic. Time Spent With Patient Total time spent: Total time spent today is 35 minutes, 20 minutes in coordination of care and discussing with patient ongoing evaluation management of hyponatremia, urinary tract infection. Subjective Date Seen: 09/28/22 Interval history: 77-year-old male seen in followup of hyponatremia and urinary tract infection. Today he reports feeling a little better. His head is less in a fog. He still having some balance issues and still feels weak. He has not had any fever. He received hypertonic saline until late last night. His sodium has gradually improved over last 2 days from 116-126. Exam Narrative: Exam Narrative: He is alert in no distress. Respirations are clear to auscultation. Cardiovascular: S1, S2, regular rate and rhythm. Abdomen bowel sounds active. Abdomen is soft without tenderness or mass. Extremities with 1+ edema to 2+ edema in both ankles. Const: Vital Signs, click to edit/add: Vital Signs - 24 hr 09/27/22 19:19 09/27/22 23:00 09/27/22 23:00 Temperature 98.2 F 98.3 F Pulse Rate [Pulse Oximeter] 67 65 65 Respiratory Rate 16 16 16 Blood Pressure [Le ft Arm] 109/65 106/62 Pulse Oximetry 97 97 Oxygen Delivery Me thod Room Air Room Air 09/28/22 03:00 09/28/22 07:50 09/28/22 11:00 Temperature 97.6 F 98.2 F 97.9 F Pulse Rate [Pulse Oximeter] 59 L 64 68 Respiratory Rate 16 16 18 Blood Pressure [Le ft Arm] 108/55 L 112/63 117/68 Pulse Oximetry 96 97 100 Oxygen Delivery Me thod Room Air Room Air Room Air Documenting provider has reviewed patient's vital signs: yes Labs Labs: Laboratory Results - last 24 hr 09/27/22 09/28/22 09/28/22 20:48 07:11 15:59 Sodium 123 L* 126 L 126 L Potassium 4.2 Chloride 98 Carbon Dioxide 20 BUN 20 Creatinine 1.3 Estimated Creat Clear 48.35 Estimated GFR 56 Glucose 88 Calcium 8.7
[2022-09-28] MEDS: cephALEXin 500 MG CAPSULE PO ×2 (17:25→21:03)
[2022-09-28] MEDS: SODIUM CHLORIDE 1 GM TABLET PO (17:25)
[2022-09-28 19:47] VITALS: BP 105/64; PULSE 68; RESP 16; TEMP 36.6; O2SAT 99
[2022-09-28] MEDS: SODIUM CHLORIDE 0.9 % (FLUSH) 10 ML SYRINGE IVF (21:04)
[2022-09-28 23:00] VITALS: BP 106/67; PULSE 68; PULSE 69; RESP 16; TEMP 36.9; O2SAT 96
[2022-09-29 02:55] VITALS: BP 106/64; PULSE 69; RESP 16; TEMP 36.9; O2SAT 96
[2022-09-29 06:32] LABS: Chloride* 99 mmol/L (96-114); Potassium* 4.5 mmol/L (3.6-5.1); Sodium* 127 mmol/L (135-149)
[2022-09-29 06:34] LABS: Creatinine* 1.4 mg/dL (0.5-1.5); Estimated Glomerular Filt Rate 51 ml/min
[2022-09-29 06:35] LABS: Blood Urea Nitrogen* 21 mg/dL (7-30); Calcium* 8.5 mg/dL (8.4-10.6); Carbon Dioxide* 21 mmol/L (20-32); Glucose* 91 mg/dL (60-115)
[2022-09-29 06:50] LABS: Urine Osmolality 268 mOsm/kg (50-800)
[2022-09-29] MEDS: LEVOTHYROXINE 50 MCG TABLET PO (07:24)
[2022-09-29] MEDS: LEVOTHYROXINE 25 MCG TABLET PO (07:24)
--- NOTE | 2022-09-29 07:28 | PC.NURSE ---
23-07: Cog delayed, slow to respond. Pt asks appropriate questions. A x 1 with gb and walker, pt moves slowly & requires minimal assistance. Stands at bedside to use urinal. 24 urine collection to be completed at 1900 09/29.
[2022-09-29 07:58] VITALS: BP 106/64; PULSE 65; RESP 16; TEMP 36.8; O2SAT 96
[2022-09-29 08:21] LABS: Magnesium* 1.4 mg/dL (1.5-2.6)
[2022-09-29] MEDS: ATORVASTATIN CALCIUM 40 MG TABLET PO (08:39)
[2022-09-29] MEDS: FAMOTIDINE 20 MG TABLET PO (08:39)
[2022-09-29] MEDS: SODIUM CHLORIDE 1 GM TABLET PO (08:39)
[2022-09-29] MEDS: SODIUM CHLORIDE 0.9 % (FLUSH) 10 ML SYRINGE IVF (08:40)
[2022-09-29] MEDS: cephALEXin 500 MG CAPSULE PO (08:40)
[2022-09-29 08:46] LABS: Basophils Absolute Auto 0.03 K/uL (0.00-0.30); Basophils Percent Auto 0.5 % (0.0-3.0); Eosinophils Percent Auto 14.2 % (0.0-7.0); Hematocrit 23.8 % (37.0-53.0); Hemoglobin* 8.5 gm/dL (13.5-17.5); Immature Granulocytes Abs Auto 0.06 K/uL (0.00-0.30); Immature Granulocytes Pct Auto 0.9 %; Lymphocytes Percent Auto 12.8 % (20-44); Mean Corpuscular HGB Conc 36 gm/dL (32-36); Mean Corpuscular Hemoglobin 32 pg (26-34); Mean Corpuscular Volume 89 fL (80-100); Monocytes Percent Auto 9.4 % (0.0-11.0); Neutrophils Absolute Auto 3.98 K/uL (1.7-7.0); Neutrophils Percent Auto 62.2 % (42.0-72.0); Platelet Count* 212 K/uL (140-440); RDW Coefficient of Variation % 12.2 % (11.5-15.5); Red Blood Count 2.68 m/uL (4.30-5.90)
[2022-09-29 08:57] LABS: Slide Review Reflex No
[2022-09-29] MEDS: MAGNESIUM SULFATE 2 GM/50 ML PIGGYBACK IVPB (09:22)
--- NOTE | 2022-09-29 11:47 | PM.DS1 ---
DS: Providers Provider Date Seen: 09/29/22 Date of admission: 09/27/22 08:11 Primary care physician: Karson Patton MD Admitting Clinician: Shalom Jaquez MD Date of Discharge: 09/29/22 DS: Diagnosis Discharge Diagnosis (1) Acute hyponatremia: Status: Acute Problem details: Acute on chronic. Presumably due to immunotherapy for bladder cancer. 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 He was treated with hypertonic saline initially. This was stopped and then he was given sodium chloride tablets. Hopefully these can be discontinued if his sodium will trend upward. If he continues to have low sodium and problems with edema he may need a low dose of furosemide. (2) Urinary tract infection: Status: Acute Problem details: Klebsiella sensitive to cephalosporins. Switch to cephalexin. (3) Fatigue: Status: Acute Problem details: Acute on chronic. Discussed need for continued activity even though it causes him fatigue. (4) Weakness: Status: Acute Problem details: Outpatient physical therapy is recommended. Continue to be physically active is important. (5) Mental confusion: Status: Acute Problem details: Mostly due to hyponatremia. After his sodium got up to 126 he did have a [place] of 24 suggesting some cognitive impairment. (6) Hematuria: Status: Acute Problem details: Chronic due to bladder cancer. Continue to monitor hemoglobin and transfuse with iron or blood as needed (7) Bladder cancer: Status: Acute Problem details: Metastatic on immunotherapy (8) Leg edema: Status: Acute Problem details: Support hose. If getting worse would consider stopping sodium chloride or adding furosemide DS: Summary Hospital Course Hospital Course: 77-year-old male undergoing immunotherapy with pembrolizumab for metastatic bladder cancer is admitted to the hospital with low sodium of 116. He has had chronic low sodiums in the low 130s over the last several months. In the last few days he has also had a change in mental status with some confusion and forgetfulness and some poor balance. These were attributed to the hyponatremia. They did improve with correction of the hyponatremia. His [place] with a sodium of 126 was 24. Sodium corrected slowly with 3% normal saline. He has been given sodium chloride tablets and fluid restriction as well. Urine osmolality was relatively elevated. Urine sodium is pending. Serum osmolality was low. Findings consistent with SIADH. Time admission he was found to have a urinary tract infection with Klebsiella oxytoca. This was sensitive to cephalosporins. He was treated with ceftriaxone then cephalexin. He had had this same infection at the end of June. He was having gross hematuria through his hospital stay. Presumably related to his bladder cancer. Hemoglobin dropped from 9-8.5. Magnesium was borderline low so was given IV magnesium and started back on oral magnesium. His atenolol was held because his blood pressure was relatively low. His pulse was also hovering around 60 off the atenolol. At this time is recommend he discontinue the atenolol as his blood pressure and pulse remained relatively low. He does have coronary artery disease which is currently asymptomatic. This can be revisited with his primary care. Restart atenolol if blood pressure and pulse are increasing or if any symptoms suggestive of angina. Status at Discharge Cognitive/behavioral status at discharge: At baseline Functional status at discharge: independent ambulation Overall status at discharge: patient is progressing back to baseline Time Spent with Patient Time attestation: Total time spent providing and/or coordinating discharge services: Time spent: Greater than 30 minutes Exam Narrative: Exam Narrative: He is alert and appears in no distress. Speech is normal. He is oriented to circumstances. Respirations are unlabored. Abdomen is soft without tenderness. Extremities with trace edema and support hose in place. Gross hematuria in his urine Const: Vital Signs, click to edit/add: Vital Signs - 24 hr 09/28/22 16:11 09/28/22 19:47 09/28/22 23:00 Temperature 98.5 F 98 F Pulse Rate [Pulse Oximeter] 66 68 68 Respiratory Rate 16 16 16 Blood Pressure [Le ft Arm] 118/72 105/64 Pulse Oximetry 99 99 Oxygen Delivery Me thod Room Air Room Air 09/28/22 23:00 09/29/22 02:55 09/29/22 07:58 Temperature 98.4 F 98.4 F 98.2 F Pulse Rate [Pulse Oximeter] 69 69 65 Respiratory Rate 16 16 16 Blood Pressure [Le ft Arm] 106/67 106/64 106/64 Pulse Oximetry 96 96 96 Oxygen Delivery Me thod Room Air Room Air Room Air Documenting provider has reviewed patient's vital signs: yes DS: Data Data Completed and Pending Labs on day of discharge: Labs from last 24 hours 09/29/22 09/29/22 09/28/22 05:45 05:45 15:59 WBC 6.40 RBC 2.68 L Hgb 8.5 L Hct 23.8 L MCV 89 MCH 32 MCHC 36 RDW Coeff of Belinda 12.2 Plt Count 212 Neut % (Auto) 62.2 Lymph % (Auto) 12.8 L [place] % (Auto) 9.4 Eos % (Auto) 14.2 H Baso % (Auto) 0.5 Neut # (Auto) 3.98 Lymph # (Auto) 0.80 L [place] # (Auto) 0.60 Eos # (Auto) 0.90 H Baso # (Auto) 0.03 Abs Immat Gran (auto) 0.06 Imm/Tot Granulo (auto) 0.9 Sodium 127 L 126 L Potassium 4.5 Chloride 99 Carbon Dioxide 21 BUN 21 Creatinine 1.4 Estimated Creat Clear 44.90 Estimated GFR 51 Glucose 91 Serum Osmolality Calcium 8.5 Magnesium 1.4 L Ur Random Osmolality 09/27/22 09/27/22 07:48 05:09 WBC RBC Hgb Hct MCV MCH MCHC RDW Coeff of Belinda Plt Count Neut % (Auto) Lymph % (Auto) [place] % (Auto) Eos % (Auto) Baso % (Auto) Neut # (Auto) Lymph # (Auto) [place] # (Auto) Eos # (Auto) Baso # (Auto) Abs Immat Gran (auto) Imm/Tot Granulo (auto) Sodium Potassium Chloride Carbon Dioxide BUN Creatinine Estimated Creat Clear Estimated GFR Glucose Serum Osmolality 250 L Calcium Magnesium Ur Random Osmolality 268 Discharge Plan Discharge Disposition: Home, Self-Care Date of Admission: 09/27/22 08:11 Attending Provider on Discharge: Indio Flaherty Primary Care Provider: Kasron Patton Condition: Improved Anticipated Discharge Date/Time: 09/29/22 11:55 Discharge Medications: New cephalexin 500 mg Capsule 500 mg PO QID Qty: 20 0RF sodium chloride 1,000 mg Tablet,Soluble 1,000 mg PO TIDWM Qty: 100 0RF Slow-Mag 71.5 mg tablet,delayed release (DR/EC) 71.5 mg PO TID Qty: 90 0RF Continued atorvastatin 40 mg tablet 40 mg PO DAILY levothyroxine 25 mcg tablet 25 mcg PO DAILY Rx Instructions: Total 75 mcg per day famotidine 20 mg tablet 20 mg PO BID levothyroxine 50 mcg tablet 50 mcg PO DAILY Discontinued atenolol 25 mg tablet 25 mg PO DAILY Discharge Orders: Discharge Order (Routine); Ordered 09/29/22 Ordered By: Indio Flaherty Patient Education: Cephalexin (By mouth), Magnesium (By mouth), Sodium Bicarbonate (By mouth), Hyponatremia (DC) Additional Instructions: See your oncologist next week. He will need recheck of your sodium and magnesium and hemoglobin. Check your weight every day. If your weight is going up or you are getting more edema he will either need to stop your salt tablets or start taking a diuretic such as furosemide. Activity Level: No Restrictions Discharge Diet: Regular Follow Up Appointments: [facility] [Outside] - 10/04/22 1:30 pm (Appointment at the [facility] with Dorota Greco DNP) Karson Patton MD [Primary Care Provider] - (Schedule appointment as needed) Forms: [employer] Info Instructions
== END 2022-09-29 12:49 | disposition home or self-care (01) | DRG 424 ==
LOC: ED 20:57 → MEDSURG 21:19
PROVIDERS: Family Medicine; Internal Medicine; Admitting Provider Internal Medicine; Emergency Provider Emergency Medicine Emergency Medical Services; PCP Family Medicine; Visit Provider Internal Medicine
DX: E22.2 Syndrome of inappropriate secretion of antidiuretic hormone (principal); T45.1X5A Adverse effect of antineoplastic and immunosuppressive drugs, initial encounter; N39.0 Urinary tract infection, site not specified; B96.1 Klebsiella pneumoniae [K. pneumoniae] as the cause of diseases classified elsewhere; C67.9 Malignant neoplasm of bladder, unspecified; R31.0 Gross hematuria; D50.0 Iron deficiency anemia secondary to blood loss (chronic); G31.84 Mild cognitive impairment of uncertain or unknown etiology; R53.1 Weakness; C79.9 Secondary malignant neoplasm of unspecified site; R60.0 Localized edema; I25.10 Atherosclerotic heart disease of native coronary artery without angina pectoris; I10 Essential (primary) hypertension; K21.9 Gastro-esophageal reflux disease without esophagitis; E03.9 Hypothyroidism, unspecified; E78.5 Hyperlipidemia, unspecified; Z96.641 Presence of right artificial hip joint; Z98.1 Arthrodesis status; R53.83 Other fatigue
CPT/HCPCS: 36415; 80048; 81015; 83735; 83930; 83935; 84295; 84300; 85025; 87086; 87186; 87426; 97116; 97161; 97165; 97530; 97535; 99199; 99284; 99285; A9270; G0378; J0696; J3475; J7030; J7131

== ENCOUNTER 2022-12-05 13:37 | Emergency (ER) | payer BC, SELFPAY ==
[2022-12-05] VITALS (17 sets, daily range): BP systolic 96–128; BP diastolic 33–73; PULSE 66–86; RESP 14–16; TEMP 36.8; O2SAT 96–100; BMI 24.1
--- NOTE | 2022-12-05 14:19 | CRLHL7_ITS ---
For Patients: As a result of the Century Cures Act, medical imaging exams and procedure reports are released immediately into your electronic medical record. You may view this report before your referring provider. If you have questions, please contact your health care provider. INDICATION: Cough. TECHNIQUE: Chest 1 views. COMPARISON: February 17, 2022. FINDINGS: Cardiovascular and mediastinum: Heart size and vasculature are normal in caliber and appearance. Left chest wall port with tip in similar position. Lungs and pleural spaces: Lungs are clear. No sign of infiltrate or mass. No sign of pleural effusion. No pneumothorax. Bones and soft tissues: No significant findings. IMPRESSION: No acute findings and no significant changes from the prior exam. Dictated by Sourav Hu MD @ 12/05/2022 3:58:47 PM (Electronically Signed)
--- NOTE | 2022-12-05 14:24 | ED.GENADULT ---
HPI - General Adult General Date Seen: 12/05/22 Chief complaint: Abdominal Pain Stated complaint: Tremors, fever, suspected bladder infection Time Seen by Provider: 12/05/22 14:00 Source: patient and family Mode of arrival: ambulatory Limitations: no limitations History of Present Illness HPI narrative: Patient is a 69-year-old gentleman with a history of bladder cancer being currently treated for such with every 3 weeks IV infusion of Keytruda, next scheduled for tomorrow. He presents here with the episodes of slight rigors, breathing fast light last night, the last approximately 1 hour then resolved. He is thought to maybe have a fever all they did not take his temperature then, his temperature this morning was normal, and 99. He had a little bit of abdominal pain with then had a bowel movement and no abdominal pain now, denies any nausea vomiting, dysuria frequency, but it does note that he has a little bit of whitish discharge when he urinates at least the 1st part of it. They called [facility] than the recommended that he be seen. History of a port on the left side of his chest. No redness rashes denies any cough cold-like symptoms is never before had COVID and has a full immunization series. History of hyponatremia and hypo magnesium me a in the past Treatments prior to arrival: none Related Data Home Medications Medication Instructions Recorded Confirmed atorvastatin 40 mg tablet 40 mg PO DAILY 09/26/22 09/27/22 famotidine 20 mg tablet 20 mg PO BID 09/26/22 09/27/22 levothyroxine 25 mcg tablet 25 mcg PO DAILY 09/26/22 09/27/22 levothyroxine 50 mcg tablet 50 mcg PO DAILY 09/26/22 09/27/22 Previous Rx's Medication Instructions Recorded cephalexin 500 mg capsule 500 mg PO QID #20 caps 09/29/22 magnesium chloride 71.5 mg 71.5 mg PO TID #90 tabs 09/29/22 (magnesium chloride) tablet,delayed release (Slow-Mag) sodium chloride 1,000 mg soluble 1,000 mg PO TIDWM #100 tabs 09/29/22 tablet Allergies Allergy/AdvReac Type Severity Reaction Status Date / Time No Known Drug Allergies Allergy Verified 12/05/22 14:00 Review of Systems Status of ROS: Reports: 10 or more systems reviewed and unremarkable except as noted in History and below [facility] Medical History Bladder cancer Coronary artery disease Hematuria Hypothyroid Ureteral obstruction Surgical History H/O inguinal hernia repair H/O lumbar discectomy H/O transurethral resection of bladder tumor (TURBT) History of arthroplasty of right hip History of arthroscopy of shoulder History of colonoscopy History of esophagogastroduodenoscopy (EGD) History of lumbar fusion History of mandibular surgery History of tonsillectomy S/P TURP Family History Father Coronary artery disease Social History Narrative: He is and lives with his . 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 He has never smoked. He formally had 1 glass of wine per day but has not been drinking since cancer diagnosis. 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 Code status is full Smoking Status: Never smoker Do you use any of these nicotine containing products: None Second hand tobacco smoke exposure: No How often do you have a drink containing alcohol: never AUDIT-C Alcohol total score: 0 Non-prescribed substance use: denies use Caffeine: Yes Exam Narrative: Exam Narrative: Patient is seen in room 1 he is in no apparent distress very soft-spoken, vital signs look normal with the bit of a soft blood pressure. Patient is speaking normally, no problem with slurring words, oriented x3. Head eyes ears nose and throat exam show equal pupils, no scleral icterus, extraocular muscles are normal, no facial droop, speech is normal, trachea normal and midline. Thyroid normal midline palpable not enlarged. Chest shows symmetrical rise bilaterally, normal auscultation with no wheezes, no increased work of breathing, no overt bruising or lesions seen, no tenderness is noted on auscultation. Heart sounds normal with no S3-S4 no murmurs clicks or gallops. Abdomen shows no obvious masses or hepatosplenomegaly, no organomegaly, bowel sounds are normal in all quadrants. No tenderness is noted also in all quadrants. Upper and lower extremities show normal power, normal range of motion, pulses are normal, sensations normal, fine motor movements are normal, pelvis is stable to rocking. Cervical spine shows normal range of motion, and palpably not tender. Thoracic spine shows normal range of motion, and palpably not tender, lumbar spine shows no tenderness to palpation percussion and is otherwise normal range of motion. Skin shows no rashes, petechiae or eccymosis. Const: Vital Signs, click to edit/add: Vital Signs - 24 hr 12/05/22 13:56 12/05/22 15:22 12/05/22 15:22 Temperature 98.2 F Pulse Rate Pulse Rate [Pulse Oximeter] 86 76 Respiratory Rate 14 16 Blood Pressure 96/58 L Blood Pressure [Ri ght Upper Arm] 99/65 96/58 L Pulse Oximetry 98 98 Oxygen Delivery Me thod Room Air Room Air 12/05/22 15:35 12/05/22 15:45 12/05/22 16:00 Temperature Pulse Rate 75 74 73 Pulse Rate [Pulse Oximeter] Respiratory Rate Blood Pressure 99/56 L Blood Pressure [Ri ght Upper Arm] Pulse Oximetry 97 98 98 Oxygen Delivery Me thod 12/05/22 16:01 12/05/22 16:30 12/05/22 16:31 Temperature Pulse Rate 73 75 72 Pulse Rate [Pulse Oximeter] Respiratory Rate Blood Pressure 107/63 101/65 Blood Pressure [Ri ght Upper Arm] Pulse Oximetry 97 97 97 Oxygen Delivery Me thod 12/05/22 17:00 12/05/22 17:01 12/05/22 17:30 Temperature Pulse Rate 70 72 69 Pulse Rate [Pulse Oximeter] Respiratory Rate Blood Pressure 101/62 Blood Pressure [Ri ght Upper Arm] Pulse Oximetry 96 96 98 Oxygen Delivery Me thod 12/05/22 17:31 12/05/22 18:00 12/05/22 18:01 Temperature Pulse Rate 68 66 66 Pulse Rate [Pulse Oximeter] Respiratory Rate Blood Pressure 111/73 116/71 Blood Pressure [Ri ght Upper Arm] Pulse Oximetry 99 99 99 Oxygen Delivery Me thod 12/05/22 18:02 12/05/22 18:30 12/05/22 18:31 Temperature Pulse Rate 66 68 67 Pulse Rate [Pulse Oximeter] Respiratory Rate Blood Pressure 128/33 L Blood Pressure [Ri ght Upper Arm] Pulse Oximetry 98 100 100 Oxygen Delivery Me thod Course Course Hospital Course: Went back in and spoke with Mr. Giraldo, looks like his UA is positive, for a UTI, we will give him some Rocephin here, and likely some a Keflex as an outpatient, the most likely organism is E coli. He was very comfortable this and would like to go home, which I do not think is out of the ordinary now, as he is not tachycardic, slightly elevated white count. We talked about worrisome signs and symptoms are that he should come back and be seen and they were comfortable this. Vital Signs Vital signs: Initial Vital Signs Temperature 98.2 F 12/05/22 13:56 Temperature Source Temporal Artery Scan 12/05/22 13:56 Pulse Rate 86 12/05/22 13:56 Pulse Rhythm 12/05/22 13:56 Pulse Strength 3+ Normal 12/05/22 13:56 Respiratory Rate 14 12/05/22 13:56 Blood Pressure 99/65 12/05/22 13:56 Blood Pressure Mean 76 12/05/22 13:56 Blood Pressure Position Sitting 12/05/22 13:56 Pulse Oximetry 98 12/05/22 13:56 Oxygen Delivery Method 12/05/22 13:56 Vital Signs Temperature 98.2 F 12/05/22 13:56 Pulse Rate 86 12/05/22 13:56 Respiratory Rate 14 12/05/22 13:56 Blood Pressure 99/65 12/05/22 13:56 Pulse Oximetry 98 12/05/22 13:56 Oxygen Delivery Method 12/05/22 13:56 Temperature 98.2 F 12/05/22 13:56 Pulse Rate 67 12/05/22 18:31 Respiratory Rate 16 12/05/22 15:22 Blood Pressure 128/33 L 12/05/22 18:31 Pulse Oximetry 100 12/05/22 18:31 Oxygen Delivery Method 12/05/22 15:22 Medical Decision Making MDM Narrative Medical decision making narrative: Life-threatening differential diagnosis considered include stroke, coronary artery disease, pneumonia, and heart failure. Other differential diagnosis include but are not limited to electrolyte imbalances, anemia, medication reactions, and urinary tract infection Lab Data Lab results reviewed: Yes I reviewed the patient's lab results Labs: Lab Results 12/05/22 12/05/22 12/05/22 Range/Units 14:19 14:30 14:30 WBC 12.24 H (4.50-11.00) K/uL RBC 2.88 L (4.30-5.90) m/uL Hgb 8.6 L (13.5-17.5) gm/dL Hct 25.8 L (37.0-53.0) % MCV 90 (80-100) fL MCH 30 (26-34) pg MCHC 33 (32-36) gm/dL RDW Coeff of Belinda 13.5 (11.5-15.5) % Plt Count 210 (140-440) K/uL Neut % (Auto) 86.9 H (42.0-72.0) % Lymph % (Auto) 3.7 L (20-44) % [place] % (Auto) 7.1 (0.0-11.0) % Eos % (Auto) 0.7 (0.0-7.0) % Baso % (Auto) 0.0 (0.0-3.0) % Neut # (Auto) 10.60 H (1.7-7.0) K/uL Lymph # (Auto) 0.50 L (0.90-2.90) K/uL [place] # (Auto) 0.90 (0.00-0.90) K/UL Eos # (Auto) 0.10 (0.00-0.50) K/uL Baso # (Auto) 0.00 (0.00-0.30) K/uL Sodium 129 L (135-149) mmol/L Potassium 4.0 (3.6-5.1) mmol/L Chloride 99 (96-114) mmol/L Carbon Dioxide 24 (20-32) mmol/L BUN 32 H (7-30) mg/dL Creatinine 1.7 H (0.5-1.5) mg/dL Estimated Creat Clear 34.65 Estimated GFR 41 ml/min Glucose 140 H (60-115) mg/dL Lactate (0.5-1.9) mmol/L Calcium 8.6 (8.4-10.6) mg/dL Magnesium 1.6 (1.5-2.6) mg/dL Total Bilirubin 0.9 (0.1-1.5) mg/dL Direct Bilirubin 0.3 (0.0-0.5) mg/dL AST 34 (12-35) U/L ALT 44 (4-50) U/L Alkaline Phosphatase 173 H (40-150) U/L C-Reactive Protein 18.6 H (0.5-1.0) mg/dL Total Protein 6.2 (6.0-8.3) g/dL Albumin 3.1 L (3.3-5.0) g/dL Procalcitonin 0.54 H (<0.50) ng/mL Urine Color (Yellow) Urine Appearance (Clear) Urine pH (5.0-8.5) Ur Specific [place] (1.000-1.030) Urine Protein (Negative) Urine Glucose (UA) (Negative) Urine Ketones (Negative) Urine Blood (Negative) Urine Nitrite (Negative) Urine Bilirubin (Negative) Urine Urobilinogen (0.2-1.0) Ur Leukocyte Esterase (Negative) Urine RBC (0-2) Urine WBC (0-5) Ur Squamous Epith Cells (None-Few) Urine Bacteria (None) SARS-CoV-2 (PCR) Negative SARS-CoV-2 (Negative) Influenza Type A (PCR) Negative PCR FLU A (Negative) Influenza Type B (PCR) Negative PCR FLU B (Negative) RSV (PCR) Negative PCR RSV (Negative) POC Troponin I (0.01-0.04) ng/ml 12/05/22 12/05/22 12/05/22 Range/Units 14:30 15:50 18:11 WBC (4.50-11.00) K/uL RBC (4.30-5.90) m/uL Hgb (13.5-17.5) gm/dL Hct (37.0-53.0) % MCV (80-100) fL MCH (26-34) pg MCHC (32-36) gm/dL RDW Coeff of Belinda (11.5-15.5) % Plt Count (140-440) K/uL Neut % (Auto) (42.0-72.0) % Lymph % (Auto) (20-44) % [place] % (Auto) (0.0-11.0) % Eos % (Auto) (0.0-7.0) % Baso % (Auto) (0.0-3.0) % Neut # (Auto) (1.7-7.0) K/uL Lymph # (Auto) (0.90-2.90) K/uL [place] # (Auto) (0.00-0.90) K/UL Eos # (Auto) (0.00-0.50) K/uL Baso # (Auto) (0.00-0.30) K/uL Sodium (135-149) mmol/L Potassium (3.6-5.1) mmol/L Chloride (96-114) mmol/L Carbon Dioxide (20-32) mmol/L BUN (7-30) mg/dL Creatinine (0.5-1.5) mg/dL Estimated Creat Clear Estimated GFR ml/min Glucose (60-115) mg/dL Lactate 0.9 (0.5-1.9) mmol/L Calcium (8.4-10.6) mg/dL Magnesium (1.5-2.6) mg/dL Total Bilirubin (0.1-1.5) mg/dL Direct Bilirubin (0.0-0.5) mg/dL AST (12-35) U/L ALT (4-50) U/L Alkaline Phosphatase (40-150) U/L C-Reactive Protein (0.5-1.0) mg/dL Total Protein (6.0-8.3) g/dL Albumin (3.3-5.0) g/dL Procalcitonin (<0.50) ng/mL Urine Color Yellow (Yellow) Urine Appearance Cloudy A (Clear) Urine pH 7.0 (5.0-8.5) Ur Specific [place] 1.020 (1.000-1.030) Urine Protein 1+ A (Negative) Urine Glucose (UA) Negative (Negative) Urine Ketones Negative (Negative) Urine Blood 2+ A (Negative) Urine Nitrite Positive A (Negative) Urine Bilirubin Negative (Negative) Urine Urobilinogen 0.2 (0.2-1.0) Ur Leukocyte Esterase 3+ A (Negative) Urine RBC >100 A (0-2) Urine WBC >100 A (0-5) Ur Squamous Epith Cells Few (None-Few) Urine Bacteria Many A (None) SARS-CoV-2 (PCR) (Negative) Influenza Type A (PCR) (Negative) Influenza Type B (PCR) (Negative) RSV (PCR) (Negative) POC Troponin I 0.02 (0.01-0.04) ng/ml ECG Data Attestation: I personally reviewed and interpreted this ECG as follows: Interpretation: Normal sinus rhythm, normal EKG, normal QRS QT DE intervals are all normal Discharge Plan Discharge Clinical Impression: Urinary tract infection, Bladder cancer, Weakness Patient Disposition: Home w/ Parent or Adult Condition: Improved Instructions: Urinary Tract Infection in Men (DC) Additional Instructions: Discussed with the patient and the to take the antibiotic as directed, return here if increasing weakness, fevers, chills, nausea, vomiting or other signs and symptoms of worsening. They were comfortable this plan. Medication is Keflex 500 mg. Take 1 capsule by mouth three times per day for 7 days Prescriptions: No Action atorvastatin 40 mg tablet 40 mg PO DAILY levothyroxine 25 mcg tablet 25 mcg PO DAILY Rx Instructions: Total 75 mcg per day famotidine 20 mg tablet 20 mg PO BID levothyroxine 50 mcg tablet 50 mcg PO DAILY cephalexin 500 mg Capsule 500 mg PO QID Qty: 20 0RF sodium chloride 1,000 mg Tablet,Soluble 1,000 mg PO TIDWM Qty: 100 0RF Slow-Mag 71.5 mg tablet,delayed release (DR/EC) 71.5 mg PO TID Qty: 90 0RF Follow Up/Referrals: Karson Patton MD [Primary Care Provider] - Stand Alone Forms: [employer] Info Instructions
[2022-12-05] MEDS: 0.9 % SODIUM CHLORIDE 1000 ml 1,000 ML IV ×2 (14:37→17:36)
[2022-12-05 14:54] LABS: Eosinophils Percent Auto 0.7 % (0.0-7.0); Hematocrit 25.8 % (37.0-53.0); Hemoglobin* 8.6 gm/dL (13.5-17.5); Immature Granulocytes Pct Auto 1.6 %; Lymphocytes Percent Auto 3.7 % (20-44); Mean Corpuscular HGB Conc 33 gm/dL (32-36); Mean Corpuscular Hemoglobin 30 pg (26-34); Mean Corpuscular Volume 90 fL (80-100); Monocytes Percent Auto 7.1 % (0.0-11.0); Neutrophils Percent Auto 86.9 % (42.0-72.0); Platelet Count* 210 K/uL (140-440); RDW Coefficient of Variation % 13.5 % (11.5-15.5); Red Blood Count 2.88 m/uL (4.30-5.90); White Blood Count* 12.24 K/uL (4.50-11.00)
[2022-12-05 14:58] LABS: Slide Review Reflex No
[2022-12-05 15:00] LABS: Troponin, Point-of-Care* 0.02 ng/ml (0.01-0.04)
[2022-12-05 15:08] LABS: Albumin* 3.1 g/dL (3.3-5.0); Chloride* 99 mmol/L (96-114)
[2022-12-05 15:08] LABS: PCR FLU A Negative PCR FLU A (Negative); PCR FLU B Negative PCR FLU B (Negative); PCR RSV Negative PCR RSV (Negative)
[2022-12-05 15:09] LABS: Sodium* 129 mmol/L (135-149)
[2022-12-05 15:11] LABS: Aspartate Amino Transferase* 34 U/L (12-35); Bilirubin Direct* 0.3 mg/dL (0.0-0.5); Bilirubin Total* 0.9 mg/dL (0.1-1.5); Carbon Dioxide* 24 mmol/L (20-32); Creatinine* 1.7 mg/dL (0.5-1.5); Est. Creatinine Clearance* 34.65; Estimated Glomerular Filt Rate 41 ml/min; Total Protein* 6.2 g/dL (6.0-8.3)
[2022-12-05 15:12] LABS: Alanine Aminotransferase* 44 U/L (4-50); Alkaline Phosphatase* 173 U/L (40-150); Blood Urea Nitrogen* 32 mg/dL (7-30); Calcium* 8.6 mg/dL (8.4-10.6); Glucose* 140 mg/dL (60-115); Magnesium* 1.6 mg/dL (1.5-2.6)
[2022-12-05 15:14] LABS: SARS PCR* Negative SARS-CoV-2 (Negative)
[2022-12-05 15:28] LABS: Procalcitonin* 0.54 ng/mL (<0.50)
[2022-12-05 15:43] LABS: C Reactive Protein* 18.6 mg/dL (0.5-1.0)
--- NOTE | 2022-12-05 15:57 | ED.NURSE ---
ua sent to lab. had stood to void ~350 ml of cloudy urine. at bs.
[2022-12-05 16:08] LABS: Appearance Urine Cloudy (Clear); Bilirubin Urine Negative (Negative); Blood Urine 2+ (Negative); Color Urine Yellow (Yellow); Glucose Urine Negative (Negative); Ketones Urine Negative (Negative); Leukocyte Esterase Urine 3+ (Negative); Nitrite Urine Positive (Negative); Protein Urine 1+ (Negative); Urobilinogen Urine 0.2 (0.2-1.0)
[2022-12-05 16:53] LABS: Bacteria Urine Many; RBC Urine >100 (0-2); Squamous Epithelial Cell Urine Few (None-Few); WBC Urine >100 (0-5)
--- NOTE | 2022-12-05 17:21 | ED.NURSE ---
Pt voided 275mL of cloudy, foul smelling urine.
[2022-12-05] MEDS: cefTRIAXone 1 GM in 0.9 % SODIUM CHLORIDE Mini-bag 100 ML IVPB (17:36)
[2022-12-05 18:19] LABS: Lactate* 0.9 mmol/L (0.5-1.9)
[2022-12-05] MEDS: HEPARIN 500 UNIT/5 ML SYRINGE IVF (19:30)
== END 2022-12-05 19:42 | disposition home or self-care (01) ==
PROVIDERS: Emergency Provider Family Medicine; PCP Family Medicine
DX: N39.0 Urinary tract infection, site not specified (principal); C67.9 Malignant neoplasm of bladder, unspecified
CPT/HCPCS: 36415; 71046; 80048; 80076; 81001; 83605; 83735; 84145; 84484; 85025; 86140; 87040; 87086; 87186; 87502; 87634; 87635; 93005; 96365; 99284; J0696; J1642; J7030

== ENCOUNTER 2023-01-18 09:30 | Outpatient (RCR) | payer BC, MEDICARE, SELFPAY ==
--- NOTE | 2023-02-14 16:11 | ONC.NURNOTE ---
Diagnosis: Bladder Cancer C67.0; Dehydration E86.0
== END 2023-04-06 10:36 | disposition home or self-care (01) ==
PROVIDERS: PCP Family Medicine; Referring Provider Family Medicine; Visit Provider Physician Assistant
DX: R26.9 Unspecified abnormalities of gait and mobility (principal); Z51.89 Encounter for other specified aftercare
CPT/HCPCS: 97110; 97116; 97162

== ENCOUNTER 2023-02-24 08:19 | Outpatient (RCR) | payer BC, SELFPAY ==
[2023-02-24 08:30] VITALS: BP 98/64; PULSE 74; RESP 16; TEMP 36.3; O2SAT 99
[2023-02-24] MEDS: 0.9 % SODIUM CHLORIDE 1000 ml 1,000 ML IV (09:00)
== END 2023-05-10 23:59 | disposition home or self-care (01) ==
LOC: CCIC 08:19
PROVIDERS: PCP Family Medicine; Referring Provider Family Medicine; Visit Provider Clinical Nurse Specialist
DX: C67.9 Malignant neoplasm of bladder, unspecified (principal); E86.0 Dehydration
CPT/HCPCS: 96360; J7030

== ENCOUNTER 2023-03-01 15:38 | Emergency (ER) | payer BC, SELFPAY ==
[2023-03-01] VITALS (19 sets, daily range): BP systolic 108–128; BP diastolic 53–70; PULSE 75–82; RESP 24; TEMP 37.2; O2SAT 86–99; BMI 21.5
--- NOTE | 2023-03-01 16:33 | ED_ITS ---
HPI - General Adult General Chief complaint: Weakness Stated complaint: Light headed, Blood in urine Time Seen by Provider: 03/01/23 16:32 History of Present Illness HPI narrative: has known bladder cancer. was found by a neighbor sitting on the front steps slow to respond . unknown as to how much time he was outside. ~ possible 3.5 hours. he had missed lunch. was able to get back into the house and was given water and juice. was called and she brought him here. she believes that he may be dehydrated. has blood coming from his penis with his urine. has a urostomy bag on the right kidney area. feels very weak, states that he gets saline infusions regularly. is getting chemo at [facility]. thinks his bp has been low. gets nacl pillsas he missed lunch. 69-year-old man presenting with spouse to the emergency department with concern of weakness. Spouse at work received a call from a neighbor that Mr. Giraldo was collapsed in the front yd. Not clear exactly how long. He is not having any pain other than some abdominal discomfort that they associated with constipation. Uncertain degree of bowel movement yesterday. Has been shivering which she associates with him getting weak. Does have a history of bladder cancer for which he is receiving chemo through [facility]. Has a right nephrostomy tube and chest port. Last chemo was last week. Chantal recent change to treatment regimen. History of hyponatremia and hypomagnesemia per spouse report. She thinks he is not up on fluids. No measured fever. No cough or cold symptoms. No shortness of breath. No chest pain. Spouse notes that hematuria was noted which is unusual. Review of records shows sodium of 134 4 days ago I believe 12/05/2022 urine cultures Urine Culture* Final ML Organism 1 Klebsiella oxytoca Ur [place] Count >100,000 CFU/ml Kleb oxyto LARRY RX --------- --- Ampicillin >=32 R Ampicillin/Sulbactam 16 I Cefazolin >=64 R Cefepime <=1 S Cefoxitin <=4 S Ceftazidime <=1 S Ceftriaxone <=1 S Ciprofloxacin 1 S Ertapenem <=0.5 S Gentamicin <=1 S Imipenem <=0.25 S Levofloxacin 4 I Nitrofurantoin <=16 S Tobramycin <=1 S Trimethoprim/Sulfamethoxazole <=20 S Piperacillin/Tazobactam 16 S Related Data Home Medications Medication Instructions Recorded Confirmed atorvastatin 40 mg tablet 40 mg PO DAILY 09/26/22 02/24/23 famotidine 20 mg tablet 20 mg PO BID 09/26/22 02/24/23 levothyroxine 25 mcg tablet 100 mcg PO DAILY 09/26/22 02/24/23 calcium phos,dibas-vitamin D3 PO 02/24/23 ferrous sulfate 325 mg (65 mg 325 mg PO DAILY 02/24/23 02/24/23 iron) tablet (iron) Previous Rx's Medication Instructions Recorded magnesium chloride 71.5 mg 71.5 mg PO TID #90 tabs 09/29/22 (magnesium chloride) tablet,delayed release (Slow-Mag) sodium chloride 1,000 mg soluble 1,000 mg PO TIDWM #100 tabs 09/29/22 tablet cefixime 400 mg capsule 400 mg PO DAILY 7 days #7 caps 03/01/23 Allergies Allergy/AdvReac Type Severity Reaction Status Date / Time No Known Drug Allergies Allergy Verified 02/24/23 08:35 Review of Systems Status of ROS: Reports: 6 or more systems reviewed and unremarkable except as noted in History and below [facility] Medical History Coronary artery disease ?I25.10 - Atherosclerotic heart disease of [place] coronary artery without angina pectoris (ICD-10) Hematuria ?R31.9 - Hematuria, unspecified (ICD-10) Ureteral obstruction ?N13.5 - Crossing vessel and stricture of ureter without hydronephrosis (ICD- 10) Bladder cancer ?C67.9 - Malignant neoplasm of bladder, unspecified (ICD-10) Hypothyroid ?E03.9 - Hypothyroidism, unspecified (ICD-10) Surgical History S/P TURP ?Z90.79 - Acquired absence of other genital organ(s) (ICD-10) History of arthroscopy of shoulder ?Z98.890 - Other specified postprocedural states (ICD-10) History of arthroplasty of right hip ?Z98.890 - Other specified postprocedural states (ICD-10) H/O transurethral resection of bladder tumor (TURBT) ?Z98.890 - Other specified postprocedural states (ICD-10) ?Z86.03 - Personal history of neoplasm of uncertain behavior (ICD-10) History of lumbar fusion ?Z98.1 - Arthrodesis status (ICD-10) H/O lumbar discectomy ?Z98.890 - Other specified postprocedural states (ICD-10) History of mandibular surgery ?Z98.890 - Other specified postprocedural states (ICD-10) History of tonsillectomy ?Z90.89 - Acquired absence of other organs (ICD-10) H/O inguinal hernia repair ?Z98.890 - Other specified postprocedural states (ICD-10) ?Z87.19 - Personal history of other diseases of the digestive system (ICD-10) History of esophagogastroduodenoscopy (EGD) ?Z98.890 - Other specified postprocedural states (ICD-10) History of colonoscopy ?Z98.890 - Other specified postprocedural states (ICD-10) Family History Father Coronary artery disease Social History Narrative: He is and lives with his . 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 He has never smoked. He formally had 1 glass of wine per day but has not been drinking since cancer diagnosis. 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 Code status is full Smoking Status: Never smoker Do you use any of these nicotine containing products: None Second hand tobacco smoke exposure: No How often do you have a drink containing alcohol: never AUDIT-C Alcohol total score: 0 Non-prescribed substance use: denies use Caffeine: Yes service: No Exam 2 Narrative: Exam Narrative: Pleasant. Seems to be intermittently little confused. Breathing easily. Skin is warm and dry. There is a faint erythematous papular rash over both forearms which I think my understanding is not exactly new. Is breathing easily. Shivering frequently. Oropharynx is moist not erythematous neck is supple without lymphadenopathy. Head is atraumatic. Cranial nerves 2-12 look to be intact. Moving all extremities without difficulty. Seat himself though generally weak. Lower extremities with trace pretibial pitting edema. Abdomen is protuberant soft with normoactive bowel sounds. Nontender. There is a right flank nephrostomy tube. I do not see any inflammatory changes here. Lungs are clear. Heart in a regular rate and rhythm. Distant. Const: Vital Signs, click to edit/add: Vital Signs - 24 hr 03/01/23 15:49 03/01/23 16:45 Temperature 98.9 F Pulse Rate [Pulse Oximeter] 79 Respiratory Rate 24 Blood Pressure [Ri ght Upper Arm] 108/60 Pulse Oximetry 97 99 Oxygen Delivery Me thod Room Air Documenting provider has reviewed patient's vital signs: yes Course Vital Signs Vital signs: Initial Vital Signs Temperature 98.9 F 03/01/23 15:49 Temperature Source Oral 03/01/23 15:49 Pulse Rate 79 03/01/23 15:49 Pulse Rhythm Regular 03/01/23 15:49 Respiratory Rate 24 03/01/23 15:49 Blood Pressure 108/60 03/01/23 15:49 Blood Pressure Mean 76 03/01/23 15:49 Blood Pressure Position Supine 03/01/23 15:49 Pulse Oximetry 97 03/01/23 15:49 Oxygen Delivery Method Room Air 03/01/23 15:49 Vital Signs Temperature 98.9 F 03/01/23 15:49 Pulse Rate 79 03/01/23 15:49 Respiratory Rate 24 03/01/23 15:49 Blood Pressure 108/60 03/01/23 15:49 Pulse Oximetry 97 03/01/23 15:49 Oxygen Delivery Method Room Air 03/01/23 15:49 Temperature 98.9 F 03/01/23 15:49 Pulse Rate 82 03/01/23 20:02 Respiratory Rate 24 03/01/23 15:49 Blood Pressure 120/61 03/01/23 20:02 Pulse Oximetry 96 03/01/23 20:02 Oxygen Delivery Method Room Air 03/01/23 15:49 Medical Decision Making MDM Narrative Medical decision making narrative: Will begin hydration. Most importantly having to evaluate for sources of infection. Electrolyte abnormalities as well given his history. CRP is notably elevated at 15.3. Sodium not unexpectedly low at 128. One-view x-ray of chest and abdomen reviewed by me do not appear to show any acute abnormalities. Maybe some mild constipation. Finally obtained urine which does show evidence of urinary tract infection. Prior cultures reviewed as above. Based on this review was given g of ceftriaxone IV. Did receive total of 2 L of normal saline. Mobilized did seem stronger with good energy. They feel able to return home at this time. Close follow-up. Blood and urine cultures are pending Blood pressures remained I think at baseline throughout time in the emergency department. See patient discharge plan Lab Data Lab results reviewed: Yes I reviewed the patient's lab results Labs: Lab Results 03/01/23 03/01/23 Range/Units 17:15 18:40 WBC 7.83 (4.50-11.00) K/uL RBC 2.94 L (4.30-5.90) m/uL Hgb 8.9 L (13.5-17.5) gm/dL Hct 26.2 L (37.0-53.0) % MCV 89 (80-100) fL MCH 30 (26-34) pg MCHC 34 (32-36) gm/dL RDW Coeff of Belinda 17.4 H (11.5-15.5) % Plt Count 297 (140-440) K/uL Neut % (Auto) 66.5 (42.0-72.0) % Lymph % (Auto) 10.9 L (20-44) % [place] % (Auto) 15.5 H (0.0-11.0) % Eos % (Auto) 5.9 (0.0-7.0) % Baso % (Auto) 0.4 (0.0-3.0) % Neut # (Auto) 5.22 (1.7-7.0) K/uL Lymph # (Auto) 0.90 (0.90-2.90) K/uL [place] # (Auto) 1.20 H (0.00-0.90) K/UL Eos # (Auto) 0.46 (0.00-0.50) K/uL Baso # (Auto) 0.03 (0.00-0.30) K/uL Sodium 128 L (135-149) mmol/L Potassium 4.2 (3.6-5.1) mmol/L Chloride 96 (96-114) mmol/L Carbon Dioxide 24 (20-32) mmol/L BUN 31 H (7-30) mg/dL Creatinine 1.4 (0.5-1.5) mg/dL Estimated Creat Clear 41.85 Estimated GFR 51 ml/min Glucose 97 (60-115) mg/dL Lactate 1.1 (0.5-1.9) mmol/L Calcium 8.9 (8.4-10.6) mg/dL Magnesium 1.6 (1.5-2.6) mg/dL Total Bilirubin 0.7 (0.1-1.5) mg/dL Direct Bilirubin 0.4 (0.0-0.5) mg/dL AST 39 H (12-35) U/L ALT 26 (4-50) U/L Alkaline Phosphatase 108 (40-150) U/L C-Reactive Protein 15.3 H (0.5-1.0) mg/dL NT-Pro-B Natriuret Pep 1720 pg/mL Total Protein 5.7 L (6.0-8.3) g/dL Albumin 3.1 L (3.3-5.0) g/dL Urine Color Yellow (Yellow) Urine Appearance Cloudy A (Clear) Urine pH 7.0 (5.0-8.5) Ur Specific [place] 1.025 (1.000-1.030) Urine Protein 3+ A (Negative) Urine Glucose (UA) Negative (Negative) Urine Ketones Negative (Negative) Urine Blood 3+ A (Negative) Urine Nitrite Positive A (Negative) Urine Bilirubin Negative (Negative) Urine Urobilinogen 0.2 (0.2-1.0) Ur Leukocyte Esterase 1+ A (Negative) Urine RBC 10-25 A (0-2) Urine WBC 25-50 A (0-5) Ur Squamous Epith Cells None (None-Few) Urine Bacteria Moderate A (None) SARS-CoV-2 (PCR) Negative SARS-CoV-2 (Negative) Influenza Type A (PCR) Negative PCR FLU A (Negative) Influenza Type B (PCR) Negative PCR FLU B (Negative) RSV (PCR) Negative PCR RSV (Negative) Discharge Plan Discharge Clinical Impression: Dehydration, Urinary tract infection, Hyponatremia Patient Disposition: Home, Self-Care Condition: Improved Additional Instructions: Continue to focus on hydration. It would seem that you will have to recheck your labs if not later this week early next week. Urine cultures and blood cultures are pending here. Return for fever, increasing weakness, repeated vomiting. You have received Rocephin, 3rd generation cephalosporin that appears to have been active against the last infection you had. To be continued on cefixime also 3rd generation cephalosporin. Activity Level: No Restrictions Discharge Diet: Regular Prescriptions: New cefixime 400 mg capsule 400 mg PO DAILY 7 Days Qty: 7 0RF No Action ferrous sulfate [iron] 325 mg (65 mg iron) tablet 325 mg PO DAILY calcium phos,dibas-vitamin D3 [Vitamin D (with calcium)] PO atorvastatin 40 mg tablet 40 mg PO DAILY levothyroxine 25 mcg tablet 100 mcg PO DAILY famotidine 20 mg tablet 20 mg PO BID sodium chloride 1,000 mg Tablet,Soluble 1,000 mg PO TIDWM Qty: 100 0RF Slow-Mag 71.5 mg tablet,delayed release (DR/EC) 71.5 mg PO TID Qty: 90 0RF Follow Up/Referrals: Karson Patton MD [Primary Care Provider] - Stand Alone Forms: [employer] Info Instructions
--- NOTE | 2023-03-01 16:45 | CRLHL7_ITS ---
For Patients: As a result of the Century Cures Act, medical imaging exams and procedure reports are released immediately into your electronic medical record. You may view this report before your referring provider. If you have questions, please contact your health care provider. INDICATION: Weakness. TECHNIQUE: Chest 1 views. COMPARISON: December 05, 2022. FINDINGS: Cardiovascular and mediastinum: Heart size and vasculature are normal in caliber and appearance. Left chest wall port with catheter tip in the SVC. Lungs and pleural spaces: Lungs are clear. No sign of infiltrate or mass. No sign of pleural effusion. No pneumothorax. Bones and soft tissues: No significant findings. IMPRESSION: No acute or significant findings. Dictated by Sourav Hu MD @ 03/01/2023 6:31:56 PM (Electronically Signed)
--- NOTE | 2023-03-01 16:45 | CRLHL7_ITS ---
For Patients: As a result of the Century Cures Act, medical imaging exams and procedure reports are released immediately into your electronic medical record. You may view this report before your referring provider. If you have questions, please contact your health care provider. Indication: Weakness. Technique: Abdomen 2 view. Comparison: None. Findings/Impression: Bowel: Bowel pattern is normal. Mild colonic stool burden. Soft tissues: No sign of free air. No sign of soft tissue mass. No suspicious calcifications. Right percutaneous nephrostomy. Bones: Unremarkable for age. Dictated by Sourav Hu MD @ 03/01/2023 6:33:01 PM (Electronically Signed)
[2023-03-01 17:28] LABS: Lactate* 1.1 mmol/L (0.5-1.9)
[2023-03-01] MEDS: 0.9 % SODIUM CHLORIDE 1000 ml 1,000 ML IV ×2 (17:28→19:49)
[2023-03-01 17:33] LABS: Basophils Percent Auto 0.4 % (0.0-3.0); Eosinophils Percent Auto 5.9 % (0.0-7.0); Hematocrit 26.2 % (37.0-53.0); Hemoglobin* 8.9 gm/dL (13.5-17.5); Lymphocytes Percent Auto 10.9 % (20-44); Mean Corpuscular HGB Conc 34 gm/dL (32-36); Mean Corpuscular Hemoglobin 30 pg (26-34); Mean Corpuscular Volume 89 fL (80-100); Monocytes Percent Auto 15.5 % (0.0-11.0); Neutrophils Percent Auto 66.5 % (42.0-72.0); Platelet Count* 297 K/uL (140-440); RDW Coefficient of Variation % 17.4 % (11.5-15.5); Red Blood Count 2.94 m/uL (4.30-5.90); White Blood Count* 7.83 K/uL (4.50-11.00)
[2023-03-01 17:34] LABS: Basophils Absolute Auto 0.03 K/uL (0.00-0.30); Eosinophils Absolute Auto 0.46 K/uL (0.00-0.50); Immature Granulocytes Abs Auto 0.06 K/uL (0.00-0.30); Immature Granulocytes Pct Auto 0.8 %; Neutrophils Absolute Auto 5.22 K/uL (1.7-7.0)
[2023-03-01 17:49] LABS: Slide Review Reflex No
[2023-03-01 17:51] LABS: Chloride* 96 mmol/L (96-114); Potassium* 4.2 mmol/L (3.6-5.1); Sodium* 128 mmol/L (135-149)
[2023-03-01 17:54] LABS: Creatinine* 1.4 mg/dL (0.5-1.5); Est. Creatinine Clearance* 41.85; Estimated Glomerular Filt Rate 51 ml/min
[2023-03-01 17:55] LABS: Blood Urea Nitrogen* 31 mg/dL (7-30); Calcium* 8.9 mg/dL (8.4-10.6); Carbon Dioxide* 24 mmol/L (20-32); Glucose* 97 mg/dL (60-115)
[2023-03-01 18:08] LABS: C Reactive Protein* 15.3 mg/dL (0.5-1.0)
[2023-03-01 18:10] LABS: Albumin* 3.1 g/dL (3.3-5.0)
[2023-03-01 18:12] LABS: Aspartate Amino Transferase* 39 U/L (12-35); Bilirubin Direct* 0.4 mg/dL (0.0-0.5); Bilirubin Total* 0.7 mg/dL (0.1-1.5); Total Protein* 5.7 g/dL (6.0-8.3)
[2023-03-01 18:13] LABS: Alanine Aminotransferase* 26 U/L (4-50); Alkaline Phosphatase* 108 U/L (40-150); Magnesium* 1.6 mg/dL (1.5-2.6)
[2023-03-01 18:21] LABS: NT Pro B Type NatriureticPept* 1720 pg/mL
[2023-03-01 18:22] LABS: PCR FLU A Negative PCR FLU A (Negative); PCR FLU B Negative PCR FLU B (Negative); PCR RSV Negative PCR RSV (Negative); SARS PCR* Negative SARS-CoV-2 (Negative)
[2023-03-01 18:52] LABS: Appearance Urine Cloudy (Clear); Bilirubin Urine Negative (Negative); Blood Urine 3+ (Negative); Color Urine Yellow (Yellow); Glucose Urine Negative (Negative); Ketones Urine Negative (Negative); Leukocyte Esterase Urine 1+ (Negative); Nitrite Urine Positive (Negative); Protein Urine 3+ (Negative); Specific Gravity Urine 1.025 (1.000-1.030); Urobilinogen Urine 0.2 (0.2-1.0)
[2023-03-01 19:19] LABS: Bacteria Urine Moderate; WBC Urine 25-50 (0-5)
[2023-03-01] MEDS: cefTRIAXone 1 GM in 0.9 % SODIUM CHLORIDE Mini-bag 100 ML IVPB (20:15)
== END 2023-03-01 22:35 | disposition home or self-care (01) ==
PROVIDERS: Emergency Provider Family Medicine; PCP Family Medicine
DX: N39.0 Urinary tract infection, site not specified (principal); E87.1 Hypo-osmolality and hyponatremia; E86.0 Dehydration
CPT/HCPCS: 36415; 71045; 74018; 80048; 80076; 81001; 83605; 83735; 83880; 85025; 86140; 87040; 87086; 87186; 87631; 94761; 96365; 99284; 99285; J0696; J7030

== ENCOUNTER 2023-05-07 03:44 | Outpatient (CLI) | payer BC, SELFPAY ==
--- OUTSIDE RECORDS SUMMARY | 2023-05-21 14:37 | XMS_ITS | Continuity of Care Document ---
Author Name Unknown Organization [facility] Address [address] [place] [address] Phone Care Team Providers Care Rehab Director Occupational Therapist Name Role Phone Dar BRAN, Amir Unavailable Unavailable Allergies, Adverse Reactions, Alerts Substance Reaction Status Criticality No Known Allergies Active No Inform ation Medications Medication Instructions Dosage Effective Dates (start - stop) Status Comments VITAMIN D3 (unknown strength) Not Available - Active FERROUS SULFATE (unknown strength) Not Available - Active FISH OIL (unknown strength) Not Available - Active ATENOLOL (unknown strength) Not Available - Active ATORVASTATIN CALCIUM (unknown strength) Not Available - Active ASPIRIN (unknown strength) Not Available - Active Procedures Procedure Date Office/Outpatient Visit,Est, Mod 2018 X-Ray Exam Lower Spine 2-3 Views 2018 Office/Outpatient Visit,Est, Mod 2018 X-Ray Exam Lower Spine 2-3 Views 2018 Postop Followup Visit X-Ray Exam Lower Spine 2-3 Views 2017 Postop Followup Visit X-Ray Exam Lower Spine 2-3 Views 2017 Pa Arthdsis Post/Posterolatrl/Postinterb fox Lumbar Pa Arthdsis Post/Posterlatrl/Postintrbdy adl Spc/Seg Remove Lumbar Spine Lamina, 1 Seg Pa Assist Remove Added Spine Lamina, 1 S eg Pa Assist Insert Spine Seg Fix, Post, 3- 6 Seg PA Assist Insert interbody cage w/fusion Arthdsis Post/Posterolatrl/Postinterbody Lumbar Arthdsis Post/Posterlatrl/Postintrbdyadl Spc/Seg Remove Lumbar Spine Lamina, 1 Seg Remove Added Spine Lamina, 1 Seg 2017 Insert Spine Seg Fix, Post, 3-6 Seg Insert interbody cage w/fusion 18 Allograft, Spine Surg, Morselized Autograft, Spine Surgery, Local 018 Office/Outpatient Visit,New, Mod 2017 X-Ray Exam Lwr Spine, Min 4 Views Advance Directives Directive Yes / No Effective Date File Name No Information Encounters Encounter Description Practice Location Reason(s) For Visit Diagnoses Date Provider Providers Copied on Encounter [facility], [address], [place], [place], [id number], [place] tel:[phone] [facility] No Information Oct- 0 Mehbod Amir. [facility] [place], [address] [place] [address] [address], [place], [place], [id number] , [place]. [phone] Office/Outpat ient Visit,Est, Mod [facility], [address], [place], [place], [id number], [place] tel:[phone] [facility] Arthrodesis status Sep-0 201 9 Mehbod Amir. [facility] [place], [address], [place], [place], [id number] , [place]. [phone] Referring Provider: Campos Benson, [address], [place], [address]. tel:[phone] Office/Outpat ient Visit,Est, Mod [facility], [address], [place], [place], [id number], [place] tel:[phone] [facility] Spinal stenosis, lumbar region with neurogenic claudication Apr-2 201 9 Bhaskar Resendiz. [address] [place] [address], [facility] [place] [id number] , [place]. [phone] Referring Provider: Campos Benson [address], [address]. tel:[phone] [facility], [address], [place], [id number], [place] tel:[phone] [facility] Encounter for other specified surgical aftercare Dec-0 3-201 8 Bhaskar Resendiz. [address], [facility] [place], [id number] , [place]. tel:[phone] Referring Provider: Campos Benson [address], [address]. tel:[phone] [facility], [address], [place], [id number], [place] tel:[phone] [facility] Encounter for other specified surgical aftercare 2201 8 Mehbod Amir. [facility], [address] [place] [address], [place], [place], [id number] , [place]. [phone] Referring Provider: Campos Benson [address], [address]. tel:[phone] [facility], [address], [place], [id number], [place] tel:[phone] [facility] No Information Sep-0 6 8 Bhaskar Resendiz. [address] [place] [address] [address], [facility] [place], [id number] , [place]. [phone] Referring Provider: Campos Benson [address], [address]. tel:[phone] [facility], [address], [place], [address], [place] tel:[phone] [facility] No Information Sep-0 201 8 Mehbod Amir. [facility] [place], [address] [place], [place] [address] [place], [place], [id number] , [place]. tel:[phone] Referring Provider: Campos Benson, [address], [address]. tel:[phone] Office/Outpat ient Visit,New, Mod [facility], [address], [place], [id number], [place] tel:[phone] [facility] Spinal stenosis, lumbar region with neurogenic claudicationS pondylolisthe sis, lumbar region 8 Bhaskar Resendiz. [address], [place], [place], [address] , [place]. tel:[phone] Referring Provider: Campos Benson, [address], [address]. tel:[phone] Family History Family Member Type Diagnosis Age At Onset No Information Payers Payer name Insurance type Covered democrat ID Donald elliott(s) [facility] [id number] [employer] [id number] Social History Type Description Quantity Date Captured Comments Sex Male Smoking Status No Information Chief Complaint And Reason For Visit No Information Reason For Referral Reason For Referral No Information Plan Of Treatment Date Type Action Status Future Order: Radiology Order AP Lateral Lumbar (APLatLumb), Ordered on: Ordered Future Order: Radiology Order AP -Lwk-Uhtd-Vnr Lum (APLatFlExL), Ordered on: Ordered History Of Present Illness Encounter Date Complaint History Of Prese nt Illness No Information Functional Status Date Functional Assessmen t No Information Instructions Date Instruction Additional Infor mation No Information Assessments Type Assessment Date No Information Patient Care Teams Name Effective Dates (start - stop) Status Members No Information
== END 2023-05-07 03:45 | disposition home or self-care (01) ==
PROVIDERS: PCP Family Medicine; Visit Provider Family Medicine
DX: T83.022A Displacement of nephrostomy catheter, initial encounter (principal); W06.XXXA Fall from bed, initial encounter
CPT/HCPCS: A0425; A0429